=== PATIENT | male | born 1960 | race Caucasian/White ===

== ENCOUNTER 2018-01-29 02:26 | Outpatient (CLI) | payer BC, SELFPAY ==
[2018-01-29 08:26] LABS: ALT 33 U/L (12-78); AST 25 U/L (15-37); Albumin 4.1 g/dL (3.4-5.0); Alkaline Phosphatase 54 U/L (46-116); Anion Gap 9.4 mmol/L (3-11); BUN 26 mg/dL (7-18); Bilirubin, Total 0.3 mg/dL (0.2-1.0); CO2 28.6 mmol/L (21.0-32.0); CREATININE 1.02 mg/dL (0.70-1.30); Calcium 8.8 mg/dL (8.5-10.1); Chloride 105 mmol/L (98-107); Cholesterol 255 mg/dL (50-200); Glucose 122 mg/dL (70-100); HDL Cholesterol 46 mg/dL (40-60); LDL CHOLESTEROL 159 mg/dL (<100); Potassium 4.5 mmol/L (3.5-5.1); Sodium 143 mmol/L (136-145); Total Protein 6.8 g/dL (6.4-8.2); Triglyceride 223 mg/dL (30-150)
[2018-01-29 08:34] LABS: TSH (W/Ref FT4) 2.13 uIU/mL (0.358-3.74)
== END 2018-01-29 02:46 ==
PROVIDERS: PCP Family Medicine; Visit Provider Family Medicine
DX: I10 Essential (primary) hypertension (principal)
CPT/HCPCS: 36415; 80053; 80061; 83721; 84443

== ENCOUNTER 2018-07-23 02:04 | Outpatient (CLI) | payer BC, SELFPAY ==
[2018-07-23 08:10] LABS: Hemoglobin A1C 5.8 % (4.5-6.2)
[2018-07-24 13:24] LABS: Lyme Ab w Rflx to Lyme Confirm Negative
[2018-07-25 19:04] LABS: Anaplasma phagocytophilum Negative (Negative); B. miyamotoi PCR Negative (Negative); Babesia divergens/MO-1 Negative (Negative); Babesia duncani Negative (Negative); Babesia microti Negative (Negative); Ehrlichia chaffeensis Negative (Negative); Ehrlichia ewingii/canis Negative (Negative); Ehrlichia muris eauclairensis Negative (Negative)
== END 2018-07-23 02:24 ==
PROVIDERS: PCP Family Medicine; Visit Provider Family Medicine
DX: M19.90 Unspecified osteoarthritis, unspecified site (principal); E78.5 Hyperlipidemia, unspecified
CPT/HCPCS: 36415; 83036; 86618; 87798

== ENCOUNTER 2018-08-27 03:04 | Outpatient (CLI) | payer BC, SELFPAY ==
[2018-08-27 08:28] LABS: Calculated LDL 91; Cholesterol 152 mg/dL (50-200); HDL Cholesterol 52 mg/dL (40-60); Triglyceride 46 mg/dL (30-150)
== END 2018-08-27 03:24 ==
PROVIDERS: PCP Family Medicine; Visit Provider Family Medicine
DX: E78.5 Hyperlipidemia, unspecified (principal)
CPT/HCPCS: 36415; 80061; 83721

== ENCOUNTER 2019-08-17 10:36 | Outpatient (CLI) | payer BC, SELFPAY ==
[2019-08-18 16:52] LABS: COVID-19 RT-PCR UVMMC Result Negative (Negative)
== END 2019-08-17 10:56 ==
PROVIDERS: PCP Family Medicine; Visit Provider Nurse Practitioner Adult Health
DX: Z11.59 Encounter for screening for other viral diseases (principal); Z03.818 Encounter for observation for suspected exposure to other biological agents ruled out
CPT/HCPCS: U0003

== ENCOUNTER 2019-09-09 08:23 | Outpatient (CLI) | payer BC, SELFPAY ==
[2019-09-11 10:46] LABS: COVID-19 RT-PCR Result NEGATIVE (Negative)
== END 2019-09-09 08:43 ==
PROVIDERS: PCP Family Medicine; Visit Provider Family Medicine
DX: Z11.59 Encounter for screening for other viral diseases (principal)
CPT/HCPCS: U0003

== ENCOUNTER 2019-09-16 08:41 | Outpatient (CLI) | payer BC, SELFPAY ==
--- NOTE | 2019-09-16 08:15 | DI.RAD_ITS ---
EXAM: XR HIP RT COMPLETE AP PELVIS CLINICAL HISTORY: R hip pain TECHNIQUE: COMPARISON: No exams were available for comparison FINDINGS: Two views were obtained. There is moderate thinning of the cartilaginous joint spaces both hips supe riorly. There are accessory ossicles of the lateral acetabulum bilaterally. Mild subchondral sclero sis acetabula E and femoral heads noted. Moderate marginal osteophyte formation femoral heads and ac etabula noted. IMPRESSION: Moderate to severe DJD both hips.
== END 2019-09-16 09:01 ==
PROVIDERS: PCP Family Medicine; Referring Provider Family Medicine; Visit Provider Physician Assistant
DX: M25.551 Pain in right hip (principal); M16.0 Bilateral primary osteoarthritis of hip
CPT/HCPCS: 73502

== ENCOUNTER 2019-10-21 10:15 | Outpatient (CLI) | payer BC, SELFPAY ==
--- NOTE | 2019-10-21 10:00 | DI.RAD_ITS ---
EXAM: XR PELVIS AP CLINICAL HISTORY: preop planning. TECHNIQUE: 2D digital imaging was performed. COMPARISON: CR XR HIP RT COMPLETE AP PELVIS from 09/16/2019 FINDINGS: There is stable moderate narrowing of the hip joint spaces. Moderate spurring is noted from the femo ral heads and bilateral acetabula. Subchondral cysts are seen. There are ossicles at the bilateral superior acetabula. SI joints pubic symphysis are unremarkable. IMPRESSION: Stable moderate degenerative changes of both hips. DATA REPOSITORY: RADIATION DOSE DELIVERED:
== END 2019-10-21 10:35 ==
PROVIDERS: PCP Family Medicine; Referring Provider Family Medicine; Visit Provider Physician Assistant
DX: M16.0 Bilateral primary osteoarthritis of hip (principal); M76.9 Unspecified enthesopathy, lower limb, excluding foot
CPT/HCPCS: 72170

== ENCOUNTER 2019-10-28 01:46 | Outpatient (CLI) | payer BC, SELFPAY ==
[2019-10-28 10:13] LABS: HCT 42.8 % (40.0-50.0); HGB 14.6 g/dL (13.5-17.5); MCH 30.9 pg (27.0-33.0); MCHC 34.1 % (32.0-36.0); MCV 90.5 fL (80-95); MPV 10.8 fL (8.0-11.0); Platelet Count 227 10^3/uL (130-400); RBC 4.73 10^6/uL (4.36-5.78); RDW 11.4 % (11.8-14.1); WBC 5.76 10^3/uL (4.4-10.8)
[2019-10-28 11:15] LABS: BUN 21 mg/dL (7-18); CREATININE 0.96 mg/dL (0.70-1.30); Calcium 9.4 mg/dL (8.5-10.1); Chloride 104 mmol/L (98-107); Glucose 116 mg/dL (74-106); Potassium 4.3 mmol/L (3.5-5.1); Sodium 141 mmol/L (136-145)
[2019-10-29 18:07] LABS: COVID-19 RT-PCR Result NEGATIVE (Negative)
== END 2019-10-28 02:06 ==
PROVIDERS: PCP Family Medicine; Visit Provider Student in an Organized Health Care Education/Training Program
DX: M16.11 Unilateral primary osteoarthritis, right hip (principal)
CPT/HCPCS: 36415; 80048; 85027; 86850; 86900; 86901; U0003

== ENCOUNTER 2019-11-01 06:04 | Observation (INO) | payer BC, SELFPAY ==
[2019-11-01] VITALS (10 sets, daily range): BP systolic 105–135; BP diastolic 66–102; PULSE 44–53; RESP 12–64; TEMP 35.8–36.6; O2SAT 93–99
[2019-11-01] MEDS: Celecoxib 200 MG CAP 400 MG PO (06:31)
[2019-11-01] MEDS: Acetaminophen 500 MG TAB 1000 MG PO ×2 (06:31→12:21)
[2019-11-01] MEDS: Lactated Ringers 1,000 ML 80 ML IV (06:32)
--- NOTE | 2019-11-01 07:13 | DSE_ITS ---
Date of service: 11/01/19 Time of Service: 14:04 DS: Diagnosis Discharge Diagnosis (1) Primary osteoarthritis of right hip: Status: Chronic Discharge Plan Disposition Patient Disposition: HOME Condition: Good Discharge Details Reason For Visit: R HIP TOTAL Admit Date/Time: 11/01/19 06:04 Admit Provider: Daniel Lay Attending Provider: Daniel Lay [facility] Hospital Course: Patient was admitted to the medical/surgical floor following the procedure. The surgery was tolerated well without any notable medical, surgical, or anesthetic complications. Mobilization began postoperatively. He was voiding spontaneously. Vitals were stable. Physical therapy worked with the patient and was cleared for discharge home. No acute medical issues. Pain was controlled on oral regimen. Home Meds and New Rx's Prescriptions: New aspirin 81 mg tablet,delayed release (DR/EC) 81 mg PO BID Qty: 60 RF: 0 acetaminophen 500 mg tablet 1,000 mg PO Q8H PRN (Reason: pain) Qty: 90 RF: 3 pantoprazole 40 mg tablet,delayed release (DR/EC) 40 mg PO DAILY Qty: 30 RF: 0 docusate sodium [Colace] 100 mg capsule 100 mg PO BID PRNQty: 10 RF: 0 ibuprofen 600 mg tablet 600 mg PO TID PRNQty: 90 RF: 3 oxycodone 5 mg tablet 5 mg PO Q4H Qty: 12 RF: 0 Continued atorvastatin 40 mg tablet 40 mg PO DAILY Qty: 90 RF: 3 lisinopril 40 mg tablet 40 mg PO DAILY Qty: 90 RF: 3 Discontinued tramadol 50 mg tablet 50 mg PO BID PRN (Reason: pain) Qty: 30 RF: 0 prednisone 5 mg tablet 5 mg PO DAILY Qty: 30 RF: 0 acetaminophen [Acetaminophen Extra Strength] 500 MG tablet 1,000 mg PO Q8H PRN PRNQty: 180 RF: 0 ibuprofen 200 mg Tablet 800 mg PO PRN PRNRF: 0 Discharge Instructions Additional Instructions: Dr. Lay's Total Hip Discharge Instructions Activity: The most important activity is to walk. You should try to take short walks a few times a day. You have no restrictions on movement or positioning, but do not try to force what you do. You will find some stiffness and weakness with hip flexion (lifting your knee). Do not try to strengthen this too early, continue to practice walking and stairs and this will come. - Outpatient physical therapy can be helpful to help return you to a normal gait and improve your flexibility and strength. This can start around 2 weeks. For most patients, it?s not necessary. Usually this is determined at the time of discharge or at the first post-operative visit. - You should wear the WOODROW hose on both legs for 2 weeks. You may remove those at night. These prevent blood pooling and swelling. Dressing: Keep the surgical dressing in place for at least one week, although it may stay in place untill follow-up. It may get wet after 3 days but avoid soaking the dressing. If it gets wet, just lightly pat dry. Most people prefer to cover the dressing with some ClingWrap, Saran Wrap, to keep it dry. After the first week it may be removed if desired and then replaced with light gauze and tape or nothing. It is important to always keep some gauze or the dressing between skin folds, especially when you are sitting, so the incision is not folded over on itself at the belly fold. Medications: - You should take Tylenol and an anti-inflammatory Ibuprofen as your primary pain control medications - You have been prescribed a stronger pain medication Oxycodone for breakthrough pain, take as needed as prescribed. - You have also been prescribed a stomach acid reduction agent Pantoprozole to help reduce stomach acid and reflux. - You will be taking Aspirin 81mg twice a day for DVT prevention unless instructed otherwise. - If you have constipation you should take Colace or Miralax (both [id number]). It takes most people 3-4 days to have a bowel movement. Follow-up: 2 weeks. If you have any acute concerns or questions, please do not hesitate to contact the office at [phone]. You may contact Dr. Lay with any questions after hours through the hospital at [phone] or on his cell phone at [phone]. Stand Alone Forms: Nursing Discharge Form Referrals: Daniel Lay MD [ [facility] STAFF PHYSICIAN] - 11/14/19 9:30 am Activity:: Activity as Tolerated Equipment/Supplies:: Walker Diet:: As Tolerated Discharge Orders Discharge Orders: Discharge Order (Routine); Ordered 11/01/19 Ordered By: Daniel Lay DS: Summary Status at Discharge Functional status at discharge: uses cane/walker Overall status at discharge: patient is progressing back to baseline Mental Status: mental status grossly normal Speech and Movement: speech and movement normal Mood: congruent mood Affect: normal affect Exam Psych Mental Status: mental status grossly normal Speech and Movement: speech and movement normal Mood: congruent mood Affect: normal affect DS: Data Vitals/I&O Vitals and I&O: Vital Signs Temperature 36.6 C 11/01/19 06:23 Pulse Rhythm Regular 11/01/19 06:23 Respiratory Rate 64 H 11/01/19 06:23 Blood Pressure 121/78 11/01/19 06:23 Pulse Oximetry 97 11/01/19 06:23 Oxygen Delivery Method Room Air 11/01/19 06:23 Oxygen Flow Rate 0 11/01/19 06:23 Intake & Output 10/31/19 10/31/19 11/01/19 11:59 23:59 11:59 Weight 81.647 kg 82.6 kg [facility] Medical History Chondromalacia, left knee (Acute) Essential hypertension (Acute) Family history of prostate cancer (Acute) Grandfather, likely non-metastatic Hyperlipidemia (Acute) Surgical History Colonoscopy w/ BX (01/05/15) H/O vasectomy (Acute) Repair, Rotator Cuff (02/13/15) 02/06/2015- Dr Lay. debrid rotator cuff, subacromial debrid w/acromioplasty, biceps tenotomy, distal clavicle excision, glenohumeral/labral debridment; Both shoulders Status post tonsillectomy (Acute) Family History Mother , cerebral hemorrhage at age 39. No problems noted. Father No problems noted. 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
--- NOTE | 2019-11-01 07:15 | DI.RAD_ITS ---
EXAM: XR HIP RT IN OR CLINICAL HISTORY: right total hip TECHNIQUE: 2D and realtime digital imaging was performed. CONTRAST MATERIAL: Refer to procedure report. COMPARISON: CR XR PELVIS AP from 10/21/2019 FINDINGS: Fluoroscopy was provided for Dr. Lay during the performance of a right total hip arthroplasty. Please refer to the procedure report for complete details. Fluoro time: 42.1 seconds IMPRESSION: RADIATION DOSE DELIVERED:
[2019-11-01] MEDS: ceFAZolin 2 GM/50 ML BAG IVPB (07:40)
[2019-11-01] MEDS: Bupivacaine 0.25% Pres-Free 30 ML VIAL (08:30)
[2019-11-01] MEDS: Ketorolac 30 MG/ML VIAL (08:31)
[2019-11-01] MEDS: oxyCODONE 5 MG TAB PO ×2 (10:34→14:03)
--- NOTE | 2019-11-01 10:57 | PT.INIE ---
Date of service: 11/01/19 Time of Service: 10:57 PT Notes Visit Reasons: R HIP TOTAL Physical Therapy Inpatient Initial Evaluation Date: 02/10/2020 Referring Doctor: Daniel Lay MD PT Orders: PT CONSULT: Status post Ortho surgery Precautions: Fall. Standard. WBAT on R LE. Patient Profile/Admitting Diagnosis: [id number] male with primary unilateral osteoarthritis of the right hip and is status post right total hip arthroplasty on postoperative day 0. PMHX: Medical History (Updated 10/21/19 @ 10:29 by Madison Askew) Chondromalacia, left knee (Acute) Essential hypertension (Acute) Family history of prostate cancer (Acute) Grandfather, likely non-metastatic Hyperlipidemia (Acute) Surgical History (Updated 10/21/19 @ 10:28 by Madison Askew) Colonoscopy w/ BX (01/05/15) H/O vasectomy (Acute) Repair, Rotator Cuff (02/13/15) 02/06/2015- Dr Lay. debrid rotator cuff, subacromial debrid w/acromioplasty, biceps tenotomy, distal clavicle excision, glenohumeral/labral debridment; Both shoulders Status post tonsillectomy (Acute) Social History/Home Situation: Lives with in a private home with 2 steps to enter without rails. Has another flight of steps with bilateral rails to the second floor of the house where the bedroom is. All aspects of ADLs without the need for assistive ambulatory device nor adaptive equipment. 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 Equipment Owned/DME: Front wheeled walker Subjective: Agreeable to PT consult. Reported mild lightheadedness upon sitting at edge of bed and with ambulation activity. Denies headache, chest pain, and shortness of breath throughout. Looks forward to going home today. Objective: General Observation: Mepilex Ag over surgical incision. Bilateral TEDS on. IV access in the left UE. Mental Status: Alert and oriented x4 Pain: 2/10 in the right hip ROM: Right Upper Extremity: Shoulder Flexion WFL. Shoulder abduction WFL. Elbow flexion WFL. Wrist flexion WFL. Opening and closing of hand WFL. Left Upper Extremity: Shoulder Flexion WFL. Shoulder abduction WFL. Elbow flexion WFL. Wrist flexion WFL. Opening and closing of hand WFL. Right Lower Extremity: Hip flexion WFL. Hip abduction WFL. Knee flexion WFL. Ankle dorsiflexion WFL. Ankle plantarflexion WFL. Left Lower Extremity: Hip flexion WFL. Hip abduction WFL. Knee flexion WFL. Ankle dorsiflexion WFL. Ankle plantarflexion WFL. Strength: Right Upper Extremity: Shoulder flexors 5/5. Shoulder abductors 5/5. Elbow flexors 5/5. Elbow extensors 5/5. 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 Left Upper Extremity: Shoulder flexors 5/5. Shoulder abductors 5/5. Elbow flexors 5/5. Elbow extensors 5/5. 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 Right Lower Extremity: Hip flexors 4/5. Hip abductors 4/5. Knee flexors 4/5. Knee extensors 4/5. Ankle dorsiflexors 5/5. Ankle plantarflexors 5/5. Left Lower Extremity:Hip flexors 5/5. Hip abductors 5/5. Knee flexors 5/5. Knee extensors 5/5. Ankle dorsiflexors 5/5. Ankle plantarflexors 5/5. Sensation: Intact as to pain and pressure on bilateral lower extremities. Reports tingling sensation on the dorsum aspect of his toes and some numbness in his chris-area. Bed Mobility/Transfers: Supine to sit supervision Sit to supine supervision Sit to stand standby assist Stand to sit standby assist Bed to chair standby assist Chair to bed Gait: Tolerated level surface ambulation of 200 feet using front wheeled walker with WBAT on the right LE requiring standby assist with step through gait pattern with report of some mild pulling sensation in the right hip that subsided towards the end of the activity. Reports 2/10 pain in the right hip with activity. Balance: Static Sitting: Normal Dynamic Sitting: Normal Static Standing: Fair Dynamic Standing: Fair Special Tests: Mobility Limitations Standardized Measure [facility] AM-PAC 6 clicks Basic Mobility Inpatient Short Form: Raw Score: 23 CMS Score: 11% deficit Informed Consent/Education: Patient instructed in purpose of PT consult and plan of care. Assessment: Olaf demonstrates functional mobility decline requiring the use of a front wheeled walker for all mobility ADL performance, and as of gait, generalized weakness, difficulty with ambulation resulting from postoperative status. [id number] male with primary unilateral osteoarthritis of the right hip and is status post right total hip arthroplasty on postoperative day 0. Patient presents with clinical signs and symptoms consistent with current/admitting diagnoses that have resulted to mobility limitations, gait instability, generalized weakness, and impairment of motor control as demonstrated by the following impairment level findings: 1. Decreased strength to right hip major muscle groups 2. Impaired sitting/standing balance 3. Impaired activity tolerance Impairments are contributing to the following functional limitations: 1. Inability to safely ambulate without assistive device and physical assistance 2. Increase completion time for mobility ADL performance 3. Increased fall risk 4. Inability to negotiate steps alone safely Patient is assessed as a 73072 moderate complexity based on the following: History: 59 [id number] with impairment level findings, functional limitations, and past medical history as indicated above Examination: Demonstrable impairment in strength, balance, and mobility level with underlying impairments and functional limitations as documented above Presentation:Evolving Decision Makin moderate complexity Goals: Goals X 1 more treatment session 1. Supine-Sit independent 2. Sit-Supine independent 3. Sit-Stand independent 4. Stand-Sit independent 5. Bed-Chair independent 6. Chair-Bed independent 7. Supervision gait on level surface with use of least restrictive device for at least 300 feet without report of pain nor dyspnea 8. Supervision stair negotiation while holding onto bilateral rails for at least 10 steps without report of pain nor dyspnea 9. Independent with home exercise program 10. Good static and dynamic standing balance/tolerance Plan of Care/Treatment Plan: N/A. PT consult and 1 treatment session only. DISCHARGE RECOMMENDATIONS: Outpatient PT services to facilitate return to premorbid independent level and to vocational activities. TREATMENT CODE/TIME: 06408 x 30 minutes, 27402 x 13 minutes beginning at 10:57 AM Thank you for the opportunity to participate in the care of this patient. Brandy Lovelace PT, DPT, CLT [facility] [place], [place]
[2019-11-01] MEDS: ceFAZolin 1 GM/50 ML BAG IVPB (11:41)
--- NOTE | 2019-11-01 13:37 | PTTR_ITS ---
Date of service: 11/01/19 Time of Service: 13:37 PT Notes Visit Reasons: R HIP TOTAL Inpatient Physical Therapy Treatment Note [facility] Date: 11/01/19 PRECAUTIONS: Fall, WBAT R SUBJECTIVE: Olaf is eager to participate in PT, as he would like to be discharged home this afternoon. OBJECTIVE: PAIN: Patient reports a stinging, pulling pain at his incision site, nursing al erted. BED MOBILITY/TRANSFERS Sit-stand: I Stand-sit: I Bed-chair: S Chair?bed: S GAIT Assistive Device: FWW Weight bearing: WBAT R Assist: S Distance: 260' Deviation: Step through gait pattern utilized Gait training performed with SPC. Patient educated on appropriate gait pattern and safe use of SPC. THEREX: Patient completed a lower extremity strengthening and stabilization program, in a long sitting position, as per flow sheet. Ice pack to R hip prior to PT session, as well as after PT session. STAIRS: Up/down 4?6 and 6?4 using B rails and a step over pattern with supervision ASSESSMENT: Patient tolerated session with complaint of a pulling/stinging pain at the incision site. He demonstrates independence with sit<>stand transfers at this time. PLAN: As per primary PT TREATMENT CODE/TIME: 25 minutes; 89080, [id number]
--- NOTE | 2019-11-01 14:05 | CHAPLAIN ---
Les said he had his hip surgery this morning, and has already been up walking around. He is in touch with family by phone and expects to be going home soon.
--- NOTE | 2019-11-01 14:19 | W.PM.OP ---
Date of service: 11/01/19 Time of Service: 09:32 Operative Note Operative Note DATE OF PROCEDURE: 11/01/19 PRE-OP DIAGNOSIS: Right Hip Osteoarthritis POST-OP DIAGNOSIS: same PROCEDURE: Right Anterior Total Hip Arthroplasty SURGEON: Daniel Lay LASER SPECIALIST: Loretta Rehman ANESTHESIA: spinal ESTIMATED BLOOD LOSS: 200 PATHOLOGY: none sent TOURNIQUET TIME: 0 COMPLICATIONS: None Patient was transported to: PACU Patient's condition: stable Implants: 1. Depuy Mumford Acetabular Component, 54mm 2. Depuy Acetabular Liner, [id number] 3. Depuy Corail High Offset Femoral Stem, Size 12 4. Depuy Altrx Ceramic Femoral Head, Size 36+1.5mm Indications: I have seen Olaf in clinic for symptoms of hip arthritis, confirmed with radiographic findings. He has exhausted nonoperative methods and was having significant limitations in daily function and desired better function and less pain. I discussed the technical details of a hip replacement. I explained the risks of the procedure to include, but not limited to, bleeding, infection, pain, stiffness, fracture, damage to nerves and vessels, damage to muscles and tendons, loosening, instability, leg length inequality, need for repeat procedure, blood clot and cardiopulmonary demise. Despite these risks, Olaf elected to proceed. Findings: There was significant signs of arthritis throughout the hip. Procedure Description: Olaf was greeted in the preoperative holding area where the correct side was identified and marked. The consent was reviewed with the patient and signed. The history and physical was updated. All questions were answered. He was taken back to the operating room. A spinal anesthestic was then administered. The patient was placed into the supine position on the operating room table. The patient was then positioned onto the ARCH table. Both feet were wrapped with Webrill cotton wrap along with Coban. The feet were placed in specialized boots for the ARCH table, well seated within the boot and secured. SCDs were applied. The patient was then slid down onto a peroneal post and the nonoperative leg was secured in a leg mckoy attached to the table. The operative side was placed into the ARCH table attachment and bed height and positioning was secured. A preoperative AP pelvis was obtained to serve as a reference for determining leg lengths. Prophylactic antibiotics in the form of Cefazolin were administered. 1g of Tranxemic Acid was given intravenously within 30 minutes of incision. The right leg was then prepped with Chloraprep and draped in a standard fashion. A second prep with Chloraprep was performed prior to placement of a shower-curtain type drape with Iodine impregnated skin protection. A timeout to confirm correct identity, side and site, procedure, allergies, anesthesia, and medical concerns was performed. An obliquely oriented incision was made starting lateral to the ASIS and running distal over the Tensor Fascia Kristina (TFL) muscle belly toward the fibular head, approximately 10cm. The skin and soft tissue was dissected sharply, through Braeden?s fascia, and to the fascia of the TFL. With the fascia and superior border of the IT band identified, the fascia was incised with a new knife just above any perforators from the IT band. The TFL muscle belly was bluntly dissected away from the fascia and moved laterally. The fat between TFL and rectus was identified to ensure the dissection was not within the TFL. Blunt dissection created space between abductors and the capsule and retractor was placed over the lateral femoral neck. The fibers of the rectus femoris tendon were identified and these were freed from the anterior capsule. A second cobra retractor was placed around the medial femoral neck. The TFL was further retracted laterally to show the deep fascia. Careful dissection through this layer identified three main crossing vessels of the lateral femoral circumflex. These were cauterized in multiple locations and then cut without any noticeable bleeding. The TFL was further released bluntly from the deep fascia to expose anterior hip capsule and fat The Tk orthopaedic retractor was then placed beneath the TFL and against sartorius and medial soft tissues to protect and retract the soft tissues. A T-capsulotomy was then performed starting at the superior lateral acetabulum and moving distally to the intertrochanteric ridge. These capsular flaps were tagged with a No. 1 Ethibond and elevated from within. The capsular flaps were released to the shoulder of the lateral neck and to the lesser trochanter to give excellent visualization of the proximal femur. A neck osteotomy was performed using an oscillating saw based on preoperative templates. This cut started in the shoulder and of the lateral neck and exited medially. The saw was at all times directed medially to avoid injury to the greater trochanter. 6cm of traction was applied to the leg and the osteotomy opened. The femoral head was removed with a corkscrew, making sure to protect the TFL on its exit. This was measured on the back table to determing the starting reamer size. Portions of the rectus obscuring visualization were minimally elevated off the superior acetabulum. An anterior retractor was placed over the anterior wall between capsule and labrum and attached to the Gripper retraction system. A posterior retractor was placed similarly. This provided excellent visualization. The contents of the cotyloid fossa were removed with electrocautery and the labrum was removed with a knife. There was significant chondromalacia of the superior acetabulum. Acetabular reaming began with a 50mm reamer. This first reaming was directed anterior to posterior and medial to get down to the true floor. This was inspected and reamed until the true floor was reached. The anterior retractor was then released and entry and exit was provided by traction on the capsular flaps. I then reamed sequentially up to a 54mm reamer where good fit was obtained. The larger reamers were oriented based on anatomical reference of the anterior and lateral long to ensure proper abduction and anteversion. Positioning and size was confirmed with the fluoroscopy. A 54mm Depuy Mumford acetabular component was selected. The acetabulum was reamed around the periphery with the selected acetabular size to prevent a rim fit. The deep tissues were irrigated. The acetabular component was then impacted in a position of about 40-45 degrees of abduction and 15-20 degrees of anteversion, using the patient?s anatomy as the ultimate landmark. Fluoroscopy was used to confirm this. There was excellent experimental mechanic spacecraft of the acetabular component and the inserting handle was removed. A primary acetabular screw was placed into the ilium by drilling through one of the holes in the acetabular component. This was measured and an approrpriately sized screw was placed with excellent purchase. It was checked not to be proud. The acetabular liner, Depuy [id number] polyethylene liner, was inserted and lined up with the tines of the acetabular component. There was no soft tissue interposition. The liner was then impacted into position and confirmed to be well-seated. A portion of the chris-articular cocktail was then injected around the acetabulum into the capsule and periosteum. This cocktail consisted of 50cc of 0.25% Bupivicaine and 20cc of Exparel, expanded to a total of 120cc. Traction was released from the femur. The leg was rotated to 120 degrees. Any remaining medial capsule was released until the lesser trochanter was easily palpable. A Allen retractor was placed medially. The lateral capsule was further released into the shoulder to allow access to the greater trochanter. A Allen retractor was placed over the greater trochanter which allowed the trochanter to flip in front of the capsule for excellent exposure. The leg was brought down into maximal extension and 20 degrees of adduction while ensuring there was no impingement on the acetabulum. Any remnant capsule within the trochanter was released. Piriformis and obturator externis were identified and protected. There was excellent access to the proximal femur. The lateral neck remnant was removed with a rongeur. A blunt canal probe was used to identify the canal and trajectory for later broaching. A box osteotome initiated the broach course. A small curved rasp and a curved curette were used to work laterally. Broaching then began with a size 8 Corail broach. This was inserted manually around the trochanter and into the canal before mallet blows. The broach was seated to a few millimeters below the cut level based on the neck cut and the preoperative template. Sequential broaching was continued with the [employer] pneumatic broaching device until a tight fit was obtained with good rotational control of the femur. A trial high offset neck was inserted along with a +1.5 trial head. The leg was brought out of extension and adduction and then reduced with traction and internal rotation. The leg was stable anteriorly in a position of 30 degrees of extension and 90 degrees of external rotation. Fluoroscopy was used to ensure there was no fracture and the stem was seated well. Leg lengths were checked with an AP pelvis and pelvic reference points. [email or web address] navigation system was used to confirm appropriate positioning and leg length and offset. Once content with the desired offset and leg lengths, the leg was brought back into extension, external rotation and adduction. The periosteum and surrounding tissue was injected with remaining portion of the chris-articular cocktail. The proximal femur was irrigated as well as the deep tissues. The Depuy Corail high offset stem, size 12, was then manually inserted into the proximal femur making sure to control rotation. It was then malleted into position with light blows, giving breaks to allow bone expansion and decrease risk of fracture. The selected Depuy Altrx Ceramic Head, size 36+1.5mm, was then placed onto the clean and dry trunnion and secured with impaction onto the tapered fit. The leg was brought back out of extension and adduction and reduced with traction and internal rotation. Stability was confirmed with no shuck at 90 degrees of external rotation and 30 degrees of extension. No impingement through range of motion arc. Final x-ray images were obtained with fluoroscopy to confirm adequate positioning and no intraoperative fracture. The deep tissues were thoroughly irrigated with Irrisept chlorhexadine solution. The second dose of TXA 1g was administered intravenously.The capsule was then reapproximated with the previously placed Ethibond sutures. The TFL fascia was finally closed with a No. 2 Stratafix, barbed suture. Deep tissues were then reapproximated with 0 Vicryl and a running 2-0 Vicryl. The skin was closed with a running 4-0 Monocryl in a subcuticular fashion. This was reinforced with skin glue. A Mepilex silver dressing was applied. At the end of the case, all counts were correct. Rico was transferred to the hospital bed without difficulty and suffering no apparent complication. Rico has a good prognosis. Physical therapy will start today and without restrictions, weight-bearing as tolerated. Aspirin 81mg BID will be used for DVT prophylaxis.
--- NOTE | 2019-11-03 08:16 | PT.INDS ---
Date of service: 11/03/19 PT Notes Visit Reasons: R HIP TOTAL Physical Therapy Inpatient Initial Evaluation Date: 11/03/2019 Dates of Service: 11/01/2019 only Referring Doctor: Daniel Lay MD PT Orders: PT CONSULT: Status post Ortho surgery Precautions: Fall. Standard. WBAT on R LE. Patient Profile/Admitting Diagnosis: Lrri-[id number] male with primary unilateral osteoarthritis of the right hip and is status post right total hip arthroplasty on postoperative day 0 on day of discharge. PMHX: Medical History (Updated 10/21/19 @ 10:29 by Madison Askew) Chondromalacia, left knee (Acute) Essential hypertension (Acute) Family history of prostate cancer (Acute) Grandfather, likely non-metastatic Hyperlipidemia (Acute) Surgical History (Updated 10/21/19 @ 10:28 by Madison Askew) Colonoscopy w/ BX (01/05/15) H/O vasectomy (Acute) Repair, Rotator Cuff (02/13/15) 02/06/2015- Dr Lay. debrid rotator cuff, subacromial debrid w/acromioplasty, biceps tenotomy, distal clavicle excision, glenohumeral/labral debridment; Both shoulders Status post tonsillectomy (Acute) Social History/Home Situation: Lives with in a private home with 2 steps to enter without rails. Has another flight of steps with bilateral rails to the second floor of the house where the bedroom is. All aspects of ADLs without the need for assistive ambulatory device nor adaptive equipment. 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 Equipment Owned/DME: Front wheeled walker Subjective: NT Objective: General Observation: NT Mental Status: NT Pain: NT ROM: Right Upper Extremity: Shoulder Flexion WFL. Shoulder abduction WFL. Elbow flexion WFL. Wrist flexion WFL. Opening and closing of hand WFL. Left Upper Extremity: Shoulder Flexion WFL. Shoulder abduction WFL. Elbow flexion WFL. Wrist flexion WFL. Opening and closing of hand WFL. Right Lower Extremity: Hip flexion WFL. Hip abduction WFL. Knee flexion WFL. Ankle dorsiflexion WFL. Ankle plantarflexion WFL. Left Lower Extremity: Hip flexion WFL. Hip abduction WFL. Knee flexion WFL. Ankle dorsiflexion WFL. Ankle plantarflexion WFL. Strength: Right Upper Extremity: Shoulder flexors 5/5. Shoulder abductors 5/5. Elbow flexors 5/5. Elbow extensors 5/5. Division Supervisor strong. Left Upper Extremity: Shoulder flexors 5/5. Shoulder abductors 5/5. Elbow flexors 5/5. Elbow extensors 5/5. Division Supervisor strong. Right Lower Extremity: Hip flexors 4/5. Hip abductors 4/5. Knee flexors 4/5. Knee extensors 4/5. Ankle dorsiflexors 5/5. Ankle plantarflexors 5/5. Left Lower Extremity:Hip flexors 5/5. Hip abductors 5/5. Knee flexors 5/5. Knee extensors 5/5. Ankle dorsiflexors 5/5. Ankle plantarflexors 5/5. Sensation: Intact as to pain and pressure on bilateral lower extremities. Reports tingling sensation on the dorsum aspect of his toes and some numbness in his chris-area. Bed Mobility/Transfers: Supine to sit independent Sit to supine independent Sit to stand independent Stand to sit independent Bed to chair supervision Gait: Tolerated level surface ambulation of 260 feet using front wheeled walker with WBAT on the right LE requiring supervision with step through gait pattern. Up and down six 4-inch steps and four 6-inch steps while holding onto B rails with step-over patern requiring supervision assist. Balance: Static Sitting: Normal Dynamic Sitting: Normal Static Standing: Fair Dynamic Standing: Fair Assessment: Olaf demonstrates functional mobility decline requiring the use of a front wheeled walker for all mobility ADL performance, and as of gait, generalized weakness, difficulty with ambulation resulting from postoperative status. [id number] male with primary unilateral osteoarthritis of the right hip and is status post right total hip arthroplasty on postoperative day 0. he plans on going home today after one more session of physical therapy to cover stair negotiation and do HEP education. Goals: Goals X 1 more treatment session 1. Supine-Sit independent MET 2. Sit-Supine independent MET 3. Sit-Stand independent MET 4. Stand-Sit independent MET 5. Bed-Chair independent NOT MET 6. Chair-Bed independent NOT MET 7. Supervision gait on level surface with use of least restrictive device for at least 300 feet without report of pain nor dyspnea MET 8. Supervision stair negotiation while holding onto bilateral rails for at least 10 steps without report of pain nor dyspnea MET 9. Independent with home exercise program MET 10. Good static and dynamic standing balance/tolerance NOT MET Plan of Care/Treatment Plan: N/A. PT consult and 1 treatment session only. DISCHARGE RECOMMENDATIONS: Outpatient PT services to facilitate return to premorbid independent level and to vocational activities. TREATMENT CODE/TIME: 95743 x 30 minutes, 04513 x 13 minutes beginning at 10:57 AM Thank you for the opportunity to participate in the care of this patient. Brandy Lovelace PT, DPT, CLT [facility] [place], [place]
== END 2019-11-01 15:16 | disposition home or self-care (01) ==
LOC: PDS 09:51 → MS 09:52
PROVIDERS: Admitting Provider Student in an Organized Health Care Education/Training Program; PCP Family Medicine; Visit Provider Student in an Organized Health Care Education/Training Program
PROC: 0SR904A Replacement of Right Hip Joint with Ceramic on Polyethylene Synthetic Substitute, Uncemented, Open Approach (ICD-10-PCS; CPT 27130; principal; 2019-11-01 07:30)
DX: M16.11 Unilateral primary osteoarthritis, right hip (principal); M25.551 Pain in right hip; Z96.641 Presence of right artificial hip joint; I10 Essential (primary) hypertension
CPT/HCPCS: 27130; 20985; C1776; 97110; 97162; 97530; NC; 73501; G0378; J0690; J1100; J1885

== ENCOUNTER 2019-11-17 14:10 | Outpatient (CLI) | payer BC, SELFPAY ==
--- NOTE | 2019-11-17 13:00 | DI.RAD_ITS ---
EXAM: XR HIP RT COMPLETE AP PELVIS CLINICAL HISTORY: 1ST POST OP TECHNIQUE: COMPARISON: CR XR PELVIS AP from 10/21/2019 FINDINGS: Two views were obtained. There is a total hip joint replacement in position on the right. The compo nents appear well seated. There is mild narrowing of the cartilaginous joint space of the left hip. Prominent marginal osteoph ytes of the acetabulum are noted laterally on the left with probable accessory ossicle at this site a s well. Mild marginal osteophytes of the left femoral head also noted. IMPRESSION: RADIATION DOSE DELIVERED: Total DLP
== END 2019-11-17 14:30 ==
PROVIDERS: PCP Family Medicine; Referring Provider Family Medicine; Visit Provider Student in an Organized Health Care Education/Training Program
DX: Z96.641 Presence of right artificial hip joint (principal)
CPT/HCPCS: 73502

== ENCOUNTER 2020-03-30 08:30 | Outpatient (CLI) | payer BC, SELFPAY ==
--- NOTE | 2020-03-30 08:15 | DI.RAD_ITS ---
EXAM: XR HAND LT COMPLETE CLINICAL HISTORY: left thumb pain. TECHNIQUE: 2D digital imaging was performed. COMPARISON: No exams were available for comparison FINDINGS: There are marked degenerative changes seen at the 1st CMC joint with joint space narrowing subchondra l sclerosis and marginal osteophytes. More mild degenerative changes are seen at the interphalangeal joints of the hand. The bones are intact and normally mineralized. No acute fracture or dislocatio n. The soft tissues are unremarkable. IMPRESSION: Marked osteoarthritis at the 1st CMC joint. DATA REPOSITORY: RADIATION DOSE DELIVERED:
--- NOTE | 2020-03-30 08:15 | DI.RAD_ITS ---
EXAM: XR HAND RT COMPLETE CLINICAL HISTORY: right thumb pain. TECHNIQUE: 2D digital imaging was performed. COMPARISON: No exams were available for comparison FINDINGS: There are degenerative changes in the right hand. Marked degenerative changes are seen at the 1st CM C joint with joint space narrowing and marginal osteophytes. More mild disease is seen at the interp halangeal joints of the hand. The bones are intact and normally mineralized. The soft tissues are u nremarkable. IMPRESSION: Marked osteoarthritis of the 1st CMC joint. DATA REPOSITORY: RADIATION DOSE DELIVERED:
== END 2020-03-30 08:50 ==
PROVIDERS: PCP Family Medicine; Referring Provider Family Medicine; Visit Provider Physician Assistant
DX: M18.11 Unilateral primary osteoarthritis of first carpometacarpal joint, right hand (principal); M18.12 Unilateral primary osteoarthritis of first carpometacarpal joint, left hand
CPT/HCPCS: 73130

== ENCOUNTER 2020-12-07 09:37 | Outpatient (CLI) | payer BC, SELFPAY ==
--- NOTE | 2020-12-07 08:30 | DI.RAD_ITS ---
Exam(s) XR HIP RT AP LAT ONLY EXAM: XR HIP RT AP LAT ONLY CLINICAL HISTORY: right FRANK TECHNIQUE: COMPARISON: CR XR HIP RT COMPLETE AP PELVIS from 11/17/2019 FINDINGS: Three views were obtained. There is a total hip joint replacement in position. The components appea r well seated. No other significant bony abnormality seen. IMPRESSION: RADIATION DOSE DELIVERED: Total DLP
== END 2020-12-07 09:38 | disposition home or self-care (01) ==
LOC: DIORS 09:37
PROVIDERS: PCP Family Medicine; Referring Provider Family Medicine; Visit Provider Physician Assistant
DX: Z96.641 Presence of right artificial hip joint (principal); Z98.890 Other specified postprocedural states
CPT/HCPCS: 73502

== ENCOUNTER 2021-02-20 02:35 | Outpatient (CLI) | payer BC, SELFPAY ==
[2021-02-20 13:30] LABS: Anion Gap 6.7 mmol/L (3-11); BUN 23 mg/dL (7-18); CO2 30.3 mmol/L (21.0-32.0); CREATININE 1.1 mg/dL (0.70-1.30); Calcium 9.4 mg/dL (8.5-10.1); Chloride 104 mmol/L (98-107); Glucose 92 mg/dL (74-106); Sodium 141 mmol/L (136-145)
[2021-02-20 23:17] LABS: PSA, Screening 2.3 ng/mL (0.0-4.5)
== END 2021-02-20 02:36 | disposition home or self-care (01) ==
LOC: LBO 02:36
PROVIDERS: PCP Family Medicine; Visit Provider Family Medicine
DX: I10 Essential (primary) hypertension (principal); Z12.5 Encounter for screening for malignant neoplasm of prostate
CPT/HCPCS: 36415; 80048; 84153

== ENCOUNTER 2021-12-20 08:31 | Outpatient (CLI) | payer BC, SELFPAY ==
--- NOTE | 2021-12-20 08:11 | DI.RAD_ITS ---
Exam(s) XR HIP PELVIS ADULT BL EXAM: XR HIP PELVIS ADULT BL CLINICAL HISTORY: s/p right FRANK, bilateral hip pain TECHNIQUE: COMPARISON: CR XR HIP RT AP LAT ONLY from 12/07/2020 FINDINGS: Three views were obtained. There is total hip joint replacement in position on the right. The components appear well seated. On the left, there is mild to moderate narrowing of the cartilaginous joint space of the hip superior ly. There is subchondral sclerosis and prominent marginal osteophytes of the acetabulum. Mild femor al head marginal osteophytes also noted. IMPRESSION: Moderate DJD left hip. Right hip THR in position. RADIATION DOSE DELIVERED: Total DLP
== END 2021-12-20 08:32 | disposition home or self-care (01) ==
LOC: DIORS 08:32
PROVIDERS: PCP Family Medicine; Referring Provider Family Medicine; Visit Provider Physician Assistant
DX: M25.551 Pain in right hip (principal); M25.552 Pain in left hip; Z96.641 Presence of right artificial hip joint; M16.12 Unilateral primary osteoarthritis, left hip
CPT/HCPCS: 73521

== ENCOUNTER 2022-02-20 03:50 | Outpatient (CLI) | payer BC, SELFPAY ==
[2022-02-20 12:52] LABS: HCT 43.1 % (40.0-50.0); HGB 14.2 g/dL (13.5-17.5); MCHC 32.9 % (32.0-36.0); MCV 94 fL (80-95); MPV 10.1 fL (8.0-11.0); Platelet Count 232 10^3/uL (130-400); RBC 4.58 10^6/uL (4.36-5.78); RDW 11.7 % (11.8-14.1); RDW-SD 39.8 fL; WBC 7.17 10^3/uL (4.4-10.8)
[2022-02-20 13:18] LABS: Anion Gap 8.5 mmol/L (3-11); BUN 26 mg/dL (7-18); CO2 27.5 mmol/L (21.0-32.0); CREATININE 1.1 mg/dL (0.70-1.30); Calcium 9.2 mg/dL (8.5-10.1); Chloride 105 mmol/L (98-107); Estimated GFR 75.43 (mL/min/1.73m2); Glucose 85 mg/dL (74-106); Potassium 3.8 mmol/L (3.5-5.1); Sodium 141 mmol/L (136-145)
[2022-02-24 09:21] LABS: PSA, Screening 1.8 ng/mL (<=4.5)
== END 2022-02-20 03:51 | disposition home or self-care (01) ==
LOC: LBO 03:50
PROVIDERS: PCP Family Medicine; Visit Provider Student in an Organized Health Care Education/Training Program
DX: M25.552 Pain in left hip (principal); M16.12 Unilateral primary osteoarthritis, left hip; Z12.5 Encounter for screening for malignant neoplasm of prostate; Z80.42 Family history of malignant neoplasm of prostate; Z01.818 Encounter for other preprocedural examination; Z01.812 Encounter for preprocedural laboratory examination
CPT/HCPCS: 36415; 80048; 84153; 85027

== ENCOUNTER → 2022-02-24 02:57 | Outpatient (CLI) | payer BC, SELFPAY ==
--- NOTE | 2022-02-24 07:15 | DI.US_ITS ---
APPROVED REPORT EXAM: Comprehensive 2D, Doppler, and color-flow Echocardiogram Patient Location: Out-Patient [facility] Installer: Vanessa Sotelo RDCS (AE) Indications: Mitral regurgitation, Pre op Other Information Study Quality: Good Conclusion Normal left ventricular wall thickness and chamber size. Estimated ejection fraction is 68%. Wall m otion is normal Normal right ventricular size and systolic function Both atria are normal in size There is no structural or hemodynamically significant valvular disease Wall motion Left Ventricle The left ventricle is normal size. The left ventricular systolic function is normal. The left ventric ular ejection fraction is within the normal range. There is normal left ventricular wall thickness. T here is normal LV segmental wall motion. There is no ventricular septal defect visualized. LVEF is 68 %. Right Ventricle The right ventricle is normal size. The right ventricular systolic function is normal. The RVSP is 19 .1mmHg. Atria The left atrium size is normal. The right atrium size is normal. The interatrial septum is intact wit h no evidence for an atrial septal defect. Aortic Valve The aortic valve is normal in structure. Aortic valve is trileaflet. There is no aortic valvular sten osis. No aortic regurgitation is present. Mitral Valve The mitral valve is normal in structure. No evidence of mitral valve stenosis. Trace mitral regurgita tion. Tricuspid Valve The tricuspid valve is normal in structure. There is no tricuspid valve stenosis. Trace tricuspid reg urgitation. Pulmonic Valve The pulmonary valve is normal in structure. There is no pulmonic valvular stenosis. Trace pulmonic re gurgitation. Great Vessels The aortic root is normal in size. The ascending aorta is normal in size. Aortic arch is normal in ca liber. IVC is normal in size and collapses >50% with inspiration. Pericardium There is no pericardial effusion. 2D Dimensions IVSD d PLAX 0.92 cm M: 0.6-1.2 LV Vol A2C d MOD 104.2 mL LVPW d PLAX 0.96 cm M: 0.6 - 1.2 LV Vol A4C d MOD 99.2 mL LVID d PLAX 4.55 cm M: 4.2 - 5.8 LA vol/ BSA A2C s A-L 29.6 mL/m2 LVDs 2.70 cm M: 2.5 - 4.0 LA vol/ BSA A4C s A-L 19.3 mL/m2 Ao Root d 3.12 cm M: 3.1 - 3.7 LA Vol/ BSA Biplane s A-L 24.1 mL/m2 RA Area A4C 15.27 cm2 LA Area A4C s MOD 14.81 cm2 RA Vol/ BSA A4C s A-L 20.0 mL/m2 LA Area A2C s MOD 18.48 cm2 Ao Asc Diam d 3.31 cm M: 2.6 - 3.4 LV EF A4C MOD 68.7 % LV EF Teichholz 70.4 % LV EF A2C MOD 68.0 % LVEF (Panda's) 68.09 % M: 52 - 72 LV EF Biplane MOD 68.1 % LV Volume 77.84 mL M: 62 - 150 SV 69.78 mL LV Volume Index 40.54 mL/m2 M: 34 - 74 SV Index 36.22 mL/m2 LV Vol Biplane MOD 102.5 mL FS 39.70 % M-Mode TAPSE 2.66 cm (M/F) >1.7 LV Diastology MV E' medial 0.109 (>0.07 m/s) E/A Ratio 1.1 LV E/e MED 5.35 (<14) MV E Vmax 0.58 (0.4-1.3 m/s) MV E' lateral 0.147 (>0.1 m/s) MV A Vmax 0.55 (0.4-1.3 m/s) LV E/e LAT 3.95 (<14) MV E/A Ratio 1.03 MV E/E' medial 5.38 MV E/E' lateral 3.98 Aortic Valve LVOT Area 3.05 cm2 AoV Area Vmax 2.79 cm2 LVOT Vmax 1.25 m/s AoV Area/ BSA (Vmax) 1.45 cm2/m2 LVOT Mean Dion. 0.75 m/s JOVANY Mean Dion. 2.52 cm2 LVOT Peak Grad 6.3 mmHg JOAVNY Mean Dion. Index 1.31 cm2/m2 LVOT Mean Grad 2.8 mmHg LVOT VTI 0.237 m LVOT Diam s 1.95 cm AoV Vmax 1.37 m/s Velocity Ratio 0.91 AoV Mean Dion. 0.91 m/s AoV Peak Grad 7.5 mmHg LVOT SV 72.25 mL AoV Mean Grad 3.8 mmHg AoV VTI 0.248 m AoV Area VTI 2.92 cm2 AoV Area/ BSA (VTI) 1.51 cm/m2 Mitral Valve MV DT 311 (160-240 msec) MV PHT 90 msec MV Area PHT 2.44 cm2 Pulmonary Valve PV Vmax 1.06 (0.5-1.5 m/s) RVOT Peak Gr. 1.40 mmHg PV Peak Grad 4.5 mmHg RVOT Mean Gr. 0.65 mmHg PV Mean Grad 2.2 mmHg RVOT VTI 0.126 m PV VTI 0.194 m RVOT Vmax 0.59 m/s Tricuspid Valve TR Peak Grad 16.0 mmHg TR Vmax 2.00 m/s RA Pressure 3.00 mmHg RVSP (TR) 19.1 mmHg
== END ==
PROVIDERS: PCP Family Medicine; Visit Provider Student in an Organized Health Care Education/Training Program
DX: I34.0 Nonrheumatic mitral (valve) insufficiency (principal)
CPT/HCPCS: 93306

== ENCOUNTER 2022-02-25 06:03 | Day surgery (SDC) | payer BC, SELFPAY ==
--- NOTE | 2022-02-21 14:07 | PDOC.ANES ---
Date of service: 02/21/22 Time of Service: 14:07 Anesthesia Note Report Anesthesia Note: Discussion with group related to outdated ECHO. Patient with moderate MR, last ECHO in 2013. National standard is an ECHO within 2 years. Called patient and discussed, notified Dr. Lay. Dr. Lay able to schedule an ECHO for thursday at 1130 barring insurance issues. Patient called back and made aware. Can proceed with elective surgery dependent on ECHO results.
[2022-02-25] VITALS (9 sets, daily range): BP systolic 109–142; BP diastolic 55–91; PULSE 42–74; RESP 12–19; TEMP 36–36.5; O2SAT 96–100; BMI 26.8
[2022-02-25] MEDS: Celecoxib 200 MG CAP 400 MG PO (06:37)
[2022-02-25] MEDS: Acetaminophen 500 MG TAB 1000 MG PO (06:37)
[2022-02-25] MEDS: Lactated Ringers 1,000 ML 80 ML IV (06:55)
--- NOTE | 2022-02-25 07:09 | DI.RAD_ITS ---
Exam(s) XR HIP LT IN OR EXAM: XR HIP LT IN OR CLINICAL HISTORY: total hip TECHNIQUE: 2D and realtime digital imaging was performed. CONTRAST MATERIAL: Refer to procedure report. COMPARISON: CR XR HIP PELVIS ADULT BL from 12/20/2021 FINDINGS: Fluoroscopy was provided for Dr. Lay during the performance of a left total hip arthroplasty. Please refer to the procedure report for complete details. Ka,r=4.42 mGy IMPRESSION: RADIATION DOSE DELIVERED:
--- NOTE | 2022-02-25 07:17 | ANES.PREOP_ITS ---
General Info Date of Service Date Performed: 02/25/22 Height: 5 ft 8 in Weight: 80 kg Body Mass Index (BMI): 26.8 Surgical Procedure: Operation Date: 02/25/22 07:50 Proposed Procedure Side Surgeon p Hip Total Hip Anterior Left Daniel Lay MD Meds Allergies and Home Medications Allergies Allergy/AdvReac Type Severity Reaction Status Date / Time tamsulosin HCl [From Flomax] AdvReac Intermediate headache Verified 02/25/22 06:19 sildenafil citrate AdvReac Mild headache Verified 02/25/22 06:19 [From Viagra] Home Medication Medication Instructions Recorded acetaminophen 500 mg tablet 1,000 mg PO Q8H PRN pain #90 tabs 11/01/19 ibuprofen 600 mg tablet 600 mg PO TID PRN #90 tabs 11/01/19 atorvastatin 40 mg tablet 40 mg PO DAILY #90 tabs 02/22/21 lisinopril 40 mg tablet 40 mg PO DAILY #90 tabs 02/22/21 Current Visit Medications: Current Medications Generic Name Dose Route Start Last Admin Trade Name Freq PRN Reason Stop Dose Admin Acetaminophen 1,000 mg 02/25/22 06:00 02/25/22 06:37 Acetaminophen 500 Mg Tab PO 02/25/22 16:00 1,000 mg PREOP DANIELA Administration Celecoxib 400 mg 02/25/22 06:00 02/25/22 06:37 Celecoxib 200 Mg Cap PO 02/25/22 16:00 400 mg PREOP DANIELA Administration Tranexamic Acid 1,000 mg/ 60 mls @ 360 mls/hr 02/25/22 06:00 Sodium Chloride IV 02/25/22 16:00 PREOP DANIELA Ringer's Solution 1,000 mls @ 80 mls/hr 02/25/22 06:00 02/25/22 06:55 IV 03/26/22 23:59 80 mls/hr INFUSION DANIELA Administration Cefazolin Sodium/Dextrose 2 gm in 50 mls @ 100 mls/hr 02/25/22 06:00 Ancef Duplex IVPB 02/25/22 16:00 PREOP DANIELA IV Miscellaneous Supplies 1 each 02/25/22 06:00 Iv Access IV 03/26/22 23:59 DIRECTED DANIELA Sodium Chloride 0 ml 02/25/22 06:00 Normal Saline Flush 10 Ml Syr IV 03/26/22 23:59 PRN PRN Sodium Chloride 0 ml 02/25/22 06:00 Normal Saline 10 Ml Vial IJ 03/26/22 23:59 DIRECTED PRN Sterile Water 0 ml 02/25/22 06:00 Water,Injection,Sterile 10 Ml Vial IJ 03/26/22 23:59 DIRECTED PRN PFSH Active Problems Active Problems: Problem Status Onset Code Mitral valve regurgitation I34.0 Degenerative joint disease of left hip M16.12 Arthritis of carpometacarpal (CMC) joint of right thumb M18.11 Arthritis of carpometacarpal (CMC) joint of left thumb M18.12 Status post total hip replacement, right 11/01/19 Z96.641 Hyperlipidemia E78.5 Primary osteoarthritis of right hip M16.11 Chondromalacia, left knee M94.262 Essential hypertension I10 Arthritis 12/19/14 M19.90 Urgency of micturition 06/20/16 R39.15 Tendonitis of both rotator cuffs 02/23/15 M75.81, M75.82 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 debrid rotator cuff, subacromial debrid w/acromioplasty, biceps tenotomy, distal clavicle excision, glenohumeral/labral debridment; Both shoulders Status post tonsillectomy Tobacco Smoking/Tobacco Use Status: Never Smokeless tobacco user: chewing tobacco (prn) Alcohol Alcohol Intake: current Alcohol intake frequency: 0-2 drinks per day Alcohol ty pe: beer Substance Use Substance use: Rarely Substance use type: marijuana Details: alcohol: t-2, one drink. Marijuana: t-2, hit from a bowl Vital Signs and Lab Results Vital Signs Most Recent Vital Signs in EMR: Most Recent Vital Signs Temp Pulse Resp BP Pulse Ox 36.4 C L 58 L 16 127/78 97 02/25/22 06:25 02/25/22 06:25 02/25/22 06:25 02/25/22 06:25 02/25/22 06:25 Lab Results Blood Type / Crossmatch: No Data to Display Complete Blood Count: White Blood Count 7.17 10^3/uL (4.4-10.8) 02/20/22 12:47 Red Blood Count 4.58 10^6/uL (4.36-5.78) 02/20/22 12:47 Hemoglobin 14.2 g/dL (13.5-17.5) 02/20/22 12:47 Hematocrit 43.1 % (40.0-50.0) 02/20/22 12:47 Platelet Count 232 10^3/uL (130-400) 02/20/22 12:47 Complete Metabolic Panel: Sodium 141 mmol/L (136-145) 02/20/22 12:47 Potassium 3.8 mmol/L (3.5-5.1) 02/20/22 12:47 Chloride 105 mmol/L (98-107) 02/20/22 12:47 Carbon Dioxide 27.5 mmol/L (21.0-32.0) 02/20/22 12:47 BUN 26 mg/dL (7-18) H 02/20/22 12:47 Creatinine 1.1 mg/dL (0.70-1.30) 02/20/22 12:47 Est GFR (CKD-EPI 2020) 75.43 (mL/min/1.73m2) 02/20/22 12:47 Calcium 9.2 mg/dL (8.5-10.1) 02/20/22 12:47 Glucose 85 mg/dL (74-106) 02/20/22 12:47 Liver Function Panel: No Data to Display Coagulation Panel: No Data to Display Cardiac Panel: No Data to Display Arterial Blood Gas: No Data to Display Venous Blood Gas: No Data to Display Pancreas Panel: No Data to Display Thyroid Panel: No Data to Display Infectious Disease: No Data to Display Blood Cultures: No Data to Display Toxicology Panel: No Data to Display Anesthesia Assessment and Plan Anesthesia History Personal History: No History of Anesthesia Complications Family History: No Family History of Anesthesia Complications Exercise Tolerance Exercise Tolerance: Metabolic Equivalents>4 Pertinent Negatives Pertinent Negatives: No Symptoms of GERD, No Major Cardiovascular Symptoms or Complaints, No Major Pulmonary Symptoms or Complaints and No History of CVA/TIA Cardiac & Pulmonary Exam Cardiac Exam: Normal S1/S2 Heart Sounds Pulmonary Exam: Clear Bilateral Breath Sounds Implantable Cardiac Device Does patient have a Pacemaker or an ICD?: No Airway Exam Known Difficult Airway: No Mallampati Class: 1 Mouth Opening: Normal (> 3cm) Thyromental Distance: Greater than 3 cm Neck Range of Motion: Full ROM Neck Circumference: Normal Teeth Condition: Normal Dentition Airway Comments: #2,3,19,30 ASA Classification ASA Score: ASA 2 Emergency Case?: No NPO Status NPO Status: NPO Clears >2 hours, Solids >8 hours Anesthesia Plan Resuscitation Status: Full Code Anesthesia Technique: Spinal Anesthesia Airway Planned: Natural Airway Monitors Used: Standard Monitors
--- NOTE | 2022-02-25 07:19 | W.PM.DSUDISC ---
Date of service: 02/25/22 Time of Service: 07:20 Discharge Plan Disposition Patient Disposition: HOME Condition: Good Discharge Details Reason For Visit: L THR Attending Provider: Daniel Lay Primary Care Provider: Bebeto Calzada Home Meds and New Rx's Prescriptions: New acetaminophen 500 mg tablet 1,000 mg PO TID Qty: 90 3RF aspirin 81 mg tablet,delayed release (DR/EC) 81 mg PO BID Qty: 60 0RF pantoprazole 40 mg tablet,delayed release (DR/EC) 40 mg PO DAILY Qty: 30 0RF oxycodone 5 mg tablet 5 mg PO Q4H MDD 6 tabs PRN (Reason: pain) Qty: 20 0RF Continued atorvastatin 40 mg tablet 40 mg PO DAILY Qty: 90 3RF lisinopril 40 mg tablet 40 mg PO DAILY Qty: 90 3RF ibuprofen 600 mg tablet 600 mg PO TID PRNQty: 90 3RF Discontinued acetaminophen 500 mg tablet 1,000 mg PO Q8H PRN (Reason: pain) Qty: 90 3RF Discharge Instructions Additional Instructions: Total Hip Discharge Instructions Activity: The most important activity is to walk. You should try to take short walks a few times a day. You have no restrictions on movement or positioning, but do not try to force what you do. You will find some stiffness and weakness with hip flexion (lifting your knee). Do not try to strengthen this too early, continue to practice walking and stairs and this will come. - Outpatient physical therapy can be helpful to help return you to a normal gait and improve your flexibility and strength. This can start around 2 weeks. For some patients, it?s not necessary. Usually this is determined at the time of discharge or at the first post-operative visit. - You should wear the WOODROW hose on both legs for 2 weeks. Dressing: Keep the surgical dressing in place for at least one week. After the first week it may be removed and replace with light gauze and tape or nothing. It may get wet after 3 days but avoid soaking the dressing. If it gets wet, just lightly pat dry. It is important to always keep some gauze between skin folds, especially when you are sitting. Spend some time with the wound exposed when you are lying flat as the incision does wrinkle onto itself. Medications: - You should take Tylenol and continue your anti-inflammatory ibuprofen as your primary pain control medications. - You have been prescribed a stronger pain medication Oxycodone for breakthrough pain, take as needed as prescribed. - You have also been prescribed a stomach acid reduction agent Pantoprozole to help reduce stomach acid and reflux. - You will be taking Aspirin 81mg twice a day for DVT prevention unless instructed otherwise. - If you have constipation you should take Colace or Miralax (both [id number]). It takes most people 3-4 days to have a bowel movement. Follow-up: 2 weeks If you have any acute concerns or questions, please do not hesitate to contact the office at [phone]. You may contact Dr. Lay with any questions after hours through the hospital at [phone] or on his cell phone at [phone]. Referrals: Daniel Lay MD [ [facility] STAFF PHYSICIAN] - Equipment/Supplies: Walker Activity:: Activity as Tolerated Shower/Bathe:: 72 hours and Cover Diet:: As Tolerated DS: Diagnosis Discharge Diagnosis (1) Degenerative joint disease of left hip: Status: Chronic
[2022-02-25] MEDS: ceFAZolin 2 GM/50 ML BAG IVPB (07:32)
--- NOTE | 2022-02-25 09:16 | W.PM.OP ---
Date of service: 02/25/22 Time of Service: 09:15 Operative Note Operative Note DATE OF PROCEDURE: 02/25/22 PRE-OP DIAGNOSIS: Left Hip Osteoarthritis POST-OP DIAGNOSIS: same PROCEDURE: Left Anterior Total Hip Arthroplasty with Intraoperative Navigation SURGEON: Daniel Lay [place] ANESTHESIA TYPE: Spinal Refer to Anesthesia Record ESTIMATED BLOOD LOSS: 200 PATHOLOGY: none sent TOURNIQUET TIME: 0 COMPLICATIONS: None Patient was transported to: PACU Patient's condition: stable Implants: 1. Depuy [place] Acetabular Component, 54mm 2. Depuy Acetabular Liner, [id number] 3. Depuy Corail Standard 125 degree Collared Femoral Stem, Size 13 4. Depuy Altrx Ceramic Femoral Head, Size 36+1.5mm Indications: I have seen Olaf in clinic for symptoms of hip arthritis, confirmed with radiographic findings. He has exhausted nonoperative methods and was having significant limitations in daily function and desired better function and less pain. I discussed the technical details of a hip replacement. I explained the risks of the procedure to include, but not limited to, bleeding, infection, pain, stiffness, fracture, damage to nerves and vessels, damage to muscles and tendons, loosening, instability, leg length inequality, need for repeat procedure, blood clot and cardiopulmonary demise. Despite these risks, Olaf elected to proceed. Findings: There was significant signs of arthritis throughout the hip. Procedure Description: Olaf was greeted in the preoperative holding area where the correct side was identified and marked. The consent was reviewed with the patient and signed. The history and physical was updated. All questions were answered. Olaf was taken back to the operating room. A spinal anesthestic was then administered. The feet were wrapped with cast padding and Coban and then placed into the boot liners and then into the boots. Care was taken to protect the skin and make sure the heels were fully down and the boots were stable. The patient was then positioned onto the HANA table. Both legs were held in a neutral position. SCDs were applied. The patient was then slid down onto a peroneal post. Prophylactic antibiotics in the form of Cefazolin were administered. 1g of Tranxemic Acid was given intravenously within 30 minutes of incision. The left leg was then prepped with Chloraprep and draped in a standard fashion. A second prep with Chloraprep was performed prior to placement of a shower-curtain type drape with Iodine impregnated skin protection. A timeout to confirm correct identity, side and site, procedure, allergies, anesthesia, and medical concerns was performed. An obliquely oriented incision was made starting lateral to the ASIS and running distal over the Tensor Fascia Kristina (TFL) muscle belly toward the fibular head, approximately 10cm. The skin and soft tissue was dissected sharply, through Braeden?s fascia, and to the fascia of the TFL. With the fascia and superior border of the IT band identified, the fascia was incised with a new knife just above any perforators from the IT band. The TFL muscle belly was bluntly dissected away from the fascia and moved laterally. The fat between TFL and rectus was identified to ensure the dissection was not within the TFL. Blunt dissection created space between abductors and the capsule and retractor was placed over the lateral femoral neck. The fibers of the rectus femoris tendon were identified and these were freed from the anterior capsule. A second cobra retractor was placed around the medial femoral neck. The TFL was further retracted laterally to show the deep fascia. Careful dissection through this layer identified three main crossing vessels of the lateral femoral circumflex. These were cauterized in multiple locations and then cut without any noticeable bleeding. The TFL was further released bluntly from the deep fascia to expose anterior hip capsule and fat The Tk orthopaedic retractor was then placed beneath the TFL and against sartorius and medial soft tissues to protect and retract the soft tissues. A T-capsulotomy was then performed starting at the superior lateral acetabulum and moving distally to the intertrochanteric ridge. These capsular flaps were tagged with a No. 1 Ethibond and elevated from within. The capsular flaps were released to the shoulder of the lateral neck and to the lesser trochanter to give excellent visualization of the proximal femur. A neck osteotomy was performed using an oscillating saw based on preoperative templates. This cut started in the shoulder and of the lateral neck and exited medially. The saw was at all times directed medially to avoid injury to the greater trochanter. Gross traction was applied to the leg and the osteotomy opened. The femoral head was removed with a corkscrew, making sure to protect the TFL on its exit. Traction was released after head removal. This was measured on the back table to determine the starting reamer size. Portions of the rectus obscuring visualization were minimally elevated off the superior acetabulum. An anterior retractor was placed over the anterior wall between capsule and labrum and attached to the Gripper retraction system. The femur was rotated to 90 degrees and medial capsule was fully released until the lesser trochanter was palpable and visible; the femur was returned to 30 degrees. A posterior retractor was placed similarly between capsule and labrum. This provided excellent visualization. The contents of the cotyloid fossa were removed with electrocautery and the labrum was removed with a knife. There was a notable floor osteophyte. There was significant chondromalacia of the superior acetabulum. Acetabular reaming began with a 50mm reamer. This first reaming was directed anterior to posterior and medial to get down to the true floor. This was inspected and reamed until the true floor was reached. The anterior retractor was then released and entry and exit was provided by traction on the capsular flaps. I then reamed sequentially up to a 54mm reamer where good fit was obtained. The larger reamers were oriented based on anatomical reference of the anterior and lateral long to ensure proper abduction and anteversion. Positioning and size was confirmed with the fluoroscopy. A 54mm Depuy [place] acetabular component was selected. The acetabulum was reamed around the periphery with the selected acetabular size to prevent a rim fit. The deep tissues were irrigated. The acetabular component was then impacted in a position of about 40-45 degrees of abduction and 15-20 degrees of anteversion, using the patient?s anatomy as the ultimate landmark. Fluoroscopy was used to confirm this. There was excellent pulmonary specialist of the acetabular component and the inserting handle was removed. The acetabular liner, Depuy [id number] polyethylene liner, was inserted and lined up with the tines of the acetabular component. There was no soft tissue interposition. The liner was then impacted into position and confirmed to be well-seated. A portion of the chris-articular cocktail was then injected around the acetabulum into the capsule and periosteum. This cocktail consisted of 123mg of Ropivacaine, 0.25mg of Epinephrine, 0.04mg of Clonidine, and 15mg of Ketorolac, diluted to 50cc. The leg was rotated to 120 degrees. Any remaining medial capsule was released until the lesser trochanter was easily palpable. A retractor was placed medially. The lateral capsule was further released into the shoulder to allow access to the greater trochanter. A Allen retractor was placed over the greater trochanter which allowed the trochanter to flip in front of the capsule for excellent exposure. The leg was brought down into maximal extension and 20 degrees of adduction while ensuring there was no impingement on the acetabulum. Any remnant capsule within the trochanter was released. Piriformis and obturator externis were identified and protected. There was excellent access to the proximal femur. The lateral neck remnant was removed with a rongeur. A blunt canal probe was used to identify the canal and trajectory for later broaching. A box osteotome initiated the broach course. A small curved rasp and a curved curette were used to work laterally. Broaching then began with a size 8 Corail broach. This was inserted manually around the trochanter and into the canal before mallet blows. The broach was seated to a few millimeters below the cut level based on the neck cut and the preoperative template. Sequential broaching was continued with the [employer] pneumatic broaching device until a tight fit was obtained with good rotational control of the femur. A trial standard 125 degree neck was inserted along with a +5 trial head. The leg was brought out of extension and adduction and then reduced with traction and internal rotation. The leg was stable anteriorly in a position of 30 degrees of extension and 90 degrees of external rotation. Fluoroscopy was used to ensure there was no fracture and the stem was seated well. Leg lengths were checked with an AP pelvis and pelvic reference points. Proteopure navigation system was used to confirm appropriate positioning and leg length and offset. This slightly overcorrected offset and leg length. Once content with the desired offset and leg lengths, the leg was brought back into extension, external rotation and adduction. The periosteum and surrounding tissue was injected with remaining portion of the chris-articular cocktail. The proximal femur was irrigated as well as the deep tissues. The Depuy [place] standard 125 degree collared stem, size 13, was then manually inserted into the proximal femur making sure to control rotation. It was then malleted into position with light blows, giving breaks to allow bone expansion and decrease risk of fracture. The fit was very tight and I had to switch to a straight data analytics chief scientist to seat the femoral component all of the way. The selected Depuy Altrx Ceramic Head, size 36+1.5mm, was then placed onto the clean and dry trunnion and secured with impaction onto the tapered fit. The leg was brought back out of extension and adduction and reduced with traction and internal rotation. Stability was confirmed with no shuck at 90 degrees of external rotation and 30 degrees of extension. No impingement through range of motion arc. Final x-ray images were obtained with fluoroscopy to confirm adequate positioning and no intraoperative fracture. The deep tissues were thoroughly irrigated with Surgiphor, betadine solution. This was allowed to sit in the wound for 3 minutes before being thoroughly irrigated out with normal saline. The capsule was then reapproximated with the previously placed Ethibond sutures. The TFL fascia was finally closed with a No. 2 Stratafix, barbed suture. Deep tissues were then reapproximated with 0 Vicryl and a running 2-0 Vicryl. The skin was closed with a running 4-0 Monocryl in a subcuticular fashion. This was reinforced with skin glue. A Mepilex silver dressing was applied. At the end of the case, all counts were correct. Tobyo was transferred to the hospital bed without difficulty and suffering no apparent complication. Rico has a good prognosis. Physical therapy will start today and without restrictions, weight-bearing as tolerated. Aspirin 81mg BID will be used for DVT prophylaxis.
--- NOTE | 2022-02-25 10:14 | W.ANESPOSTOP ---
Postoperative Evaluation Date, Time and Location Date Performed: 02/25/22 Time Performed: 10:14 Patient Location: Day Surgery Unit Vital Signs Most Recent Imported Vital Signs: Most Recent Vital Signs Temp Pulse Resp BP Pulse Ox 36.0 C L 49 L 17 121/91 H 100 02/25/22 10:00 02/25/22 10:00 02/25/22 10:00 02/25/22 10:00 02/25/22 10:00 Pain Score Most Recent Pain Score: Most Recent Pain Score Pain Level 0 02/25/22 10:00 Assessment Mental Status: Awake (Alert & Oriented to Patient Baseline) Airway and Respiratory Function: Patent airway with normal (patient baseline) respiratory exam Cardiovascular Function: Hemodynamically Stable Hydration Status: Adequately Hydrated Nausea & Vomiting: No Nausea or Vomiting Pain: Pt. Denies Any Pain Peripheral Nerve Block: Patient did not receive a nerve block
[2022-02-25] MEDS: oxyCODONE 5 MG TAB PO (11:20)
--- NOTE | 2022-02-25 11:40 | PT.INIE ---
Date of service: 02/25/22 Time of Service: 11:40 PT Notes Visit Reasons: L THR Physical Therapy Day Surgery Initial Evaluation Date: 02/25/2022 Referring Doctor: MASHA Truong PT Orders: PT CONSULT: S/P Ortho Surgery Precautions: WBAT on the L LE with AD. Patient Profile/Admitting Diagnosis: Olaf is a 62-year-old male with primary unilateral osteoarthirtis of the L hip and is S/P L anterior total hip arthroplasty on postoperative day 0. PMHX: Medical History?(Updated 12/20/21 @ 08:38 by Madison Askew) Family history of prostate cancer Grandfather, likely non-metastatic Surgical History? Colonoscopy w/ BX (01/05/15) H/O vasectomy Repair, Rotator Cuff (02/13/15) 02/06/2015- Dr Lay. debrid rotator cuff, subacromial debrid w/acromioplasty, biceps tenotomy, distal clavicle excision, glenohumeral/labral debridment; Both shouldersStatus post tonsillectomy Social History/Home Situation: Lives with in a priavte home with two steps to enter without rails. He has a flight of steps to the bedroom on the second floor, rails on B sides. Equipment Owned/DME: FWW Subjective: Reports numbness in the R foot that slowed down limb advancement on the R to a step to. Pain level stayed at a 5-6/10 in the L hip throughout. Nurse Berrios premedicated patient some 20 minutes ago prior to PT visit. Objective: General Observation: Supine in stretcher. Mepilex Ag over surgical incision. TEDS to B legs. Mental Status: Alert and oriented x 4 Pain: 5-6/10 in the L hip during ambulation ROM: Right Lower Extremity: Hip flexion WFL. Hip abduction WFL. Knee flexion WFL. Ankle dorsiflexion WFL. Ankle plantarflexion WFL. Left Lower Extremity: Hip flexion WFL. Hip abduction WFL. Knee flexion WFL. Ankle dorsiflexion WFL. Ankle plantarflexion WFL. Strength: Right Lower Extremity: Hip flexors 5/5. Hip abductors 5/5. Knee flexors 5/5. Knee extensors 5/5. Ankle dorsiflexors 5/5. Ankle plantarflexors 5/5. Left Lower Extremity:Hip flexors 4/5. Hip abductors 4/5. Knee flexors 5/5. Knee extensors 4/5. Ankle dorsiflexors 5/5. Ankle plantarflexors 5/5. Sensation: Numbness in the R foot otherwise intact in B LE with as to pain and light pressure Bed Mobility/Transfers: Supine to sit stand by assist Sit to stand contact guard assist Stand to sit contcat guard assist Bed to chair contact guard assist Gait: 150 feet using FWW with contact guard assist, step to gait pattern for safety and increased stability. Kandi slowed due to minor incoordination with R limb advancement from being numb. No loss of balance. No path deviation. Stairs: Up and down 20 steps and 4 x 6 inch steps holding onto a single-point cane with 1 hand and the other holding onto a rail with step to gait pattern requiring contact-guard assist. THER EX: Quads sets x 5 Glutes sets x 5 Heels slides x 10 Ankle PF/DF x 10 LAQ x 10 Seated marches x 5 Balance: Static Sitting: Normal Dynamic Sitting: Normal Static Standing: Fair Dynamic Standing: Fair Special Tests: Mobility Limitations Standardized Measure [facility] 6 clicks Basic Mobility Inpatient Short Form: Raw Score: 19 CMS Score: 42% deficit Informed Consent/Education: Patient instructed in purpose of PT consult. Packet containing FRANK exercise protocol has been given to patient. Education and training on initial set of exercises that can be done at home have been completed with patient. Assessment: Patient requires the use of a FWW for all mobility ADL performance to maximize independence and reduce fall risk. Patient presents with clinical signs and symptoms consistent with current/admitting diagnoses that have resulted to mobility limitations, gait instability, generalized weakness, and impairment of motor control as demonstrated by the following impairment level findings: 1. Decreased strength to left hip major muscle groups 2. Impaired standing balance Impairments are contributing to the following functional limitations: 1. Inability to safely ambulate without assistive device 2. Increase completion time for mobility ADL performance 3. Increased fall risk Patient is assessed as a 90986 moderate complexity based on the following: History: 62-year-old male with impairment level findings, functional limitations, and past medical history as indicated above Examination: Demonstrable impairment in strength, balance, and mobility level with underlying impairments and functional limitations as documented above Presentation: Evolving Decision Makin moderate complexity Goals: N/A. PT evaluation and 1-2 treatment sessions only for functional mobility training using recommended AD and for HEP instruction. Plan of Care/Treatment Plan: N/A. PT evaluation and 1-2 treatment session only for functional mobility training using recommended AD and for HEP instruction. DISCHARGE RECOMMENDATIONS: Home when medically cleared by orthopedic surgeon. Patient will benefit from outpatient physical therapy to optimize functional mobility outcomes and facilitate return to community ambulation without an assistive device. TREATMENT CODE/TIME: 31855 x 25 minutes, 99909 x 17 minutes beginning at 11:40 AM. Thank you for the opportunity to participate in the care of this patient. Brandy Lovelace PT, DPT, CLT [facility] [place], [place]
== END 2022-02-25 13:30 | disposition home or self-care (01) ==
PROVIDERS: PCP Family Medicine; Visit Provider Student in an Organized Health Care Education/Training Program
PROC: (CPT 27130; principal; 2022-02-25 07:30)
DX: M16.12 Unilateral primary osteoarthritis, left hip (principal); I10 Essential (primary) hypertension; E78.5 Hyperlipidemia, unspecified
CPT/HCPCS: 27130; 20985; 97162; 97530; 73501; J0690; J1100; J2250; J2370; J2405

== ENCOUNTER 2022-03-10 10:14 | Outpatient (CLI) | payer BC, SELFPAY ==
--- NOTE | 2022-03-10 09:30 | DI.RAD_ITS ---
Exam(s) XR HIP LT COMPLETE AP PELVIS EXAM: XR HIP LT COMPLETE AP PELVIS INDICATION: s/p left FRANK. COMPARISON: CR XR HIP PELVIS ADULT BL from 12/20/2021 XA XR HIP LT IN OR from 02/25/2022 TECHNIQUE: 2D digital imaging was performed. Two views. FINDINGS: The right hip prosthesis is unchanged. There has been interval placement of a left hip prosthesis wh ich shows satisfactory alignment. No abnormal surrounding bony lucencies. IMPRESSION: Unremarkable bilateral total hip prostheses. DATA REPOSITORY: RADIATION DOSE DELIVERED:
== END 2022-03-10 10:15 | disposition home or self-care (01) ==
LOC: DIORS 10:14
PROVIDERS: PCP Family Medicine; Referring Provider Family Medicine; Visit Provider Physician Assistant
DX: Z96.642 Presence of left artificial hip joint (principal); Z47.1 Aftercare following joint replacement surgery
CPT/HCPCS: 73502

== ENCOUNTER 2022-12-05 06:13 | Day surgery (SDC) | payer BC, SELFPAY ==
--- NOTE | 2022-12-04 16:27 | W.PM.DSUDISC ---
Date of service: 12/05/22 Time of Service: 08:35 Discharge Plan Disposition Patient Disposition: Home Condition: Good Discharge Details Reason For Visit: screening colonoscopy Attending Provider: Moody Keys Primary Care Provider: Bebeto Calzada Home Meds and New Rx's Prescriptions: Continued atorvastatin 40 mg tablet 40 mg PO DAILY Qty: 90 3RF lisinopril 40 mg tablet 40 mg PO DAILY Qty: 90 3RF acetaminophen 500 mg tablet 1,000 mg PO TID Qty: 90 3RF Patient Comments: pt. reports he no longer takes ibuprofen 800 mg Tablet 800 mg PO Discontinued polyethylene glycol 3350 17 gram/dose powder 238 g PO ONCE Qty: 238 0RF Rx Instructions: take per colonoscopy instructions bisacodyl [Dulcolax (bisacodyl)] 5 mg tablet,delayed release (DR/EC) 5 mg PO ONCE Qty: 4 0RF Rx Instructions: take per colonoscopy instructions Discharge Instructions Instructions: Diverticulosis (GEN), Colorectal Polyps (GEN), Diverticulosis Diet (GEN) Additional Instructions: Olaf, we were able to finish your colonoscopy today without any problems. I did find 1 polyp in the rectum, it has clinical features that seem consistent with a hyperplastic polyp, as you have experienced before. Regardless, I did remove it, and we will send it off to pathology to confirm the diagnosis. Once I have the results I will be in touch. Otherwise, you have a fair amount of diverticulosis. These are weak spots in the colon wall. They can become infected and inflamed. When that happens, patients typically experience sharp pain on the right side of their abdomen, and sometimes down across the lower portion. We will attach a little bit of information here regarding general management of diverticulosis. 1. If tolerated, consume a soft, low fiber diet for 1-2 days. 2. Do not drive, drink alcohol, operate machinery, make critical decisions, or do activities that require coordination or balance for 24 hours. 3. Because air was put into your colon during the procedure, expelling air from your rectum (passing gas or farting) is normal. 4. You may not have a bowel movement for 1-3 days because of the colonoscopy prep. This is normal. 5. Go directly to the emergency room if you notice any of the following: Develop chills (warm to touch), or if you have a thermometer and your temperature is above 101 Difficulty breathing or difficultly swallowing Persistent vomiting Severe abdominal pain, other than gas cramps Severe chest pain Black, tarry stools Any bleeding ? exceeding one tablespoon 6. Call your physician if the site where your intravenous was started becomes red, swollen, painful, and warm to touch. 7. Your physician has reviewed your pre-procedure medications. Please continue to take those medications as previously ordered. You will be given specific information/education regarding any changes to your medications before leaving. Activity:: Activity as Tolerated Diet:: As Tolerated Discharge Orders Discharge Orders: Discharge Order (Routine); Ordered 12/04/22 Ordered By: Moody Keys DS: Diagnosis Discharge Diagnosis (1) Encounter for screening colonoscopy: Status: Acute Asessment and Plan: Follow-up on polypectomy results
--- NOTE | 2022-12-04 16:29 | W.COLOREPORT ---
Date of service: 12/05/22 Time of Service: 08:40 Colonoscopy Report Date of procedure: 12/05/22 Pre-op diagnosis general: Screening colonoscopy Post-op diagnosis procedure note: other (Rectal polyp, diverticulosis) Procedure: Colonoscopy with polypectomy Surgeon: Moody Keys Anesthesia Type: General:No Airway Estimated blood loss (mL): 5 Pathology: other (Rectal polyp) Complications: None Disposition: same day Indications: Olaf is a 62-year-old male needs a screening colonoscopy Prep: Miralax/Dulcolax Procedure Start Time: 07:58 Procedure End Time: 08:24 Retraction Time: 18 Findings: Pandiverticulosis, 0.25 cm rectal polyp Procedure Description: After the induction of monitored anesthetic care, and with the patient in left lateral decubitus position, I began by performing an external anorectal exam.? Perineum and skin were normal, as was the anal verge.? There was no evidence of external hemorrhoids.? Next, I performed a digital rectal exam.? I did not appreciate any abnormal findings.? Next, I advanced a colonoscope into the rectal vault.? I performed retroflexion.? There are grade 1 internal hemorrhoids.? Using insufflation, I then advanced the colonoscope beyond the rectal folds and into the sigmoid colon before advancing towards the cecum.? The quality of the prep was excellent.? The scope was noted to be in the cecum by identification of the ileocecal valve and appendiceal orifice.? I then began withdrawing the colonoscope using repeated irrigation as necessary for full evaluation of the colonic mucosa. There is diverticulosis extending from the sigmoid colon all the way to the cecum. It is most heavily concentrated in the sigmoid. Once the scope was withdrawn to the level of the rectum, great care was taken to examine portions of the rectal folds.? There was a 0.25 cm sessile polyp within the rectum. I removed it with cold forcep polypectomy. There was minimal bleeding. Finally, the scope was withdrawn and the patient was brought to the same-day surgery recovery unit as the anesthetic wore off. ?The findings and instructions were shared with the patient prior to discharge.
[2022-12-05 06:36] VITALS: BP 130/85; PULSE 68; RESP 14; TEMP 36.7; O2SAT 99
--- NOTE | 2022-12-05 06:43 | ANES.PREOP_ITS ---
General Info Date of Service Date Performed: 12/05/22 Height: 5 ft 8 in Weight: 76.9 kg Body Mass Index (BMI): 25.7 Surgical Procedure: Operation Date: 12/05/22 07:35 Proposed Procedure Side Surgeon p Thea Keys MD Meds Allergies and Home Medications Allergies Allergy/AdvReac Type Severity Reaction Status Date / Time tamsulosin HCl [From Flomax] AdvReac Intermediate headache Verified 12/05/22 06:32 sildenafil citrate AdvReac Mild headache Verified 12/05/22 06:32 [From Viagra] Home Medication Medication Instructions Recorded acetaminophen 500 mg tablet 1,000 mg PO TID #90 tabs 02/25/22 atorvastatin 40 mg tablet 40 mg PO DAILY #90 tabs 07/03/22 lisinopril 40 mg tablet 40 mg PO DAILY #90 tabs 07/03/22 ibuprofen 800 mg tablet 800 mg PO 12/05/22 Current Visit Medications: Current Medications Generic Name Dose Route Start Last Admin Trade Name Freq PRN Reason Stop Dose Admin Hyoscyamine Sulfate 0.125 mg 12/04/22 16:30 Hyoscyamine 0.125 Mg Sl/Oral/Chew SL 01/03/23 16:29 DIRECTED PRN Ringer's Solution 1,000 mls @ 80 mls/hr 12/05/22 06:00 IV 12/05/22 23:59 INFUSION [facility] IV Miscellaneous Supplies 1 each 12/05/22 06:00 Iv Access IV 12/05/22 23:59 DIRECTED DANIELA Ondansetron HCl 4 mg 12/04/22 16:30 Ondansetron 4 Mg/2 Ml Vial IVP 01/03/23 16:29 Q4H PRN PRN Nausea / Vomiting Sodium Chloride 0 ml 12/05/22 06:00 Normal Saline Flush 10 Ml Syr IV 12/05/22 23:59 PRN PRN Sodium Chloride 0 ml 12/05/22 06:00 Normal Saline 10 Ml Vial IJ 12/05/22 23:59 DIRECTED PRN Sterile Water 0 ml 12/05/22 06:00 Water,Injection,Sterile 10 Ml Vial IJ 12/05/22 23:59 DIRECTED PRN PFSH Active Problems Active Problems: Problem Status Onset Code Encounter for screening colonoscopy Z12.11 Mitral valve regurgitation I34.0 Arthritis of carpometacarpal (CMC) joint of right thumb M18.11 Arthritis of carpometacarpal (CMC) joint of left thumb M18.12 Status post total hip replacement, right 11/01/19 Z96.641 Hyperlipidemia E78.5 Primary osteoarthritis of right hip M16.11 Chondromalacia, left knee M94.262 Essential hypertension I10 Arthritis 12/19/14 M19.90 Urgency of micturition 06/20/16 R39.15 Tendonitis of both rotator cuffs 02/23/15 M75.81, M75.82 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 Other and unspecified hyperlipidemia 10/21/00 E78.5 Frequency of micturition 05/23/16 R35.0 Erectile dysfunction 12/23/13 N52.9 Bilateral acromioclavicular joint arthritis 02/23/15 M19.011, M19.012 BPH w/o urinary obs/LUTS 10/19/03 N40.0 Benign neoplasm of colon 11/18/09 D12.6 Adjustment disorder with anxiety 04/28/16 F43.22 Medical History Medical History Family history of prostate cancer Grandfather, likely non-metastatic Surgical History Surgical History Colonoscopy w/ BX (01/05/15) H/O vasectomy History of total left hip replacement (02/25/22) Repair, Rotator Cuff (02/13/15) 02/06/2015- Dr Lay. debrid rotator cuff, subacromial debrid w/acromioplasty, biceps tenotomy, distal clavicle excision, glenohumeral/labral debridment; Both shoulders Status post tonsillectomy Tobacco Smoking/Tobacco Use Status: Never Smokeless tobacco user: chewing tobacco (prn) Alcohol Alcohol Intake: current Alcohol intake frequency: 0-2 drinks per day Alcohol type: beer Substance Use Substance use: Rarely Substance use type: marijuana Vital Signs and Lab Results Vital Signs Most Recent Vital Signs in EMR: Most Recent Vital Signs Temp Pulse Resp BP Pulse Ox 36.7 C 68 14 130/85 99 12/05/22 06:36 12/05/22 06:36 12/05/22 06:36 12/05/22 06:36 12/05/22 06:36 Lab Results Blood Type / Crossmatch: No Data to Display Complete Blood Count: No Data to Display Complete Metabolic Panel: No Data to Display Liver Function Panel: No Data to Display Coagulation Panel: No Data to Display Cardiac Panel: No Data to Display Arterial Blood Gas: No Data to Display Venous Blood Gas: No Data to Display Pancreas Panel: No Data to Display Thyroid Panel: No Data to Display Infectious Disease: No Data to Display Blood Cultures: No Data to Display Toxicology Panel: No Data to Display Imaging and Studies Imaging and Studies Study information below may be from another EMR and interpreted by another provider. Please see original notes in EMR for more complete details. Echocardiogram Summary: Patient Name: Les Lucas #: [id number]: DI Ordering Provider: Daniel Lay M.D. : [facility] Primary Care Provider: Bebeto Calzada of Exam: 02/24/22Sex: M Admission Date: 02/24/22 : 1960 Age: 62 APPROVED REPORT EXAM: Comprehensive 2D, Doppler, and color-flow Echocardiogram Patient Location: Out-Patient Casting Machine Set Up Operator: Vanessa Sotelo RDCS (AE) Indications: Mitral regurgitation, Pre op Other Information Study Quality: Good Conclusion Normal left ventricular wall thickness and chamber size. Estimated ejection fraction is 68%. Wall motion is normal Normal right ventricular size and systolic function Both atria are normal in size There is no structural or hemodynamically significant valvular disease Wall motion Left Ventricle The left ventricle is normal size. The left ventricular systolic function is normal. The left ventricular ejection fraction is within the normal range. There is normal left ventricular wall thickness. There is normal LV segmental wall motion. There is no ventricular septal defect visualized. LVEF is 68%. Right Ventricle The right ventricle is normal size. The right ventricular systolic function is normal. The RVSP is 19.1mmHg. Atria The left atrium size is normal. The right atrium size is normal. The interatrial septum is intact with no evidence for an atrial septal defect. Aortic Valve The aortic valve is normal in structure. Aortic valve is trileaflet. There is no aortic valvular stenosis. No aortic regurgitation is present. Mitral Valve The mitral valve is normal in structure. No evidence of mitral valve stenosis. Trace mitral regurgitation. Tricuspid Valve The tricuspid valve is normal in structure. There is no tricuspid valve stenosis. Trace tricuspid regurgitation. Pulmonic Valve The pulmonary valve is normal in structure. There is no pulmonic valvular stenosis. Trace pulmonic regurgitation. Great Vessels The aortic root is normal in size. The ascending aorta is normal in size. Aortic arch is normal in caliber. IVC is normal in size and collapses >50% with inspiration. Pericardium There is no pericardial effusion. 2D Dimensions IVSD d PLAX 0.92 cm M: 0.6-1.2LV Vol A2C d MOD 104.2 mL LVPW d PLAX 0.96 cm M: 0.6 - 1.2LV Vol A4C d MOD 99.2 mL LVID d PLAX 4.55 cm M: 4.2 - 5.8LA vol/ BSA A2C s A-L29.6 mL/m2 LVDs 2.70 cm M: 2.5 - 4.0LA vol/ BSA A4C s A-L19.3 mL/m2 Ao Root d 3.12 cm M: 3.1 - 3.7LA Vol/ BSA Biplane s A-L 24.1 mL/m2 RA Area A4C15.27 cm2LA Area A4C s MOD 14.81 cm2 RA Vol/ BSA A4C s A-L 20.0 mL/m2LA Area A2C s MOD 18.48 cm2 Ao Asc Diam d 3.31 cm M: 2.6 - 3.4LV EF A4C MOD 68.7 % LV EF Teichholz 70.4 %LV EF A2C MOD 68.0 % LVEF (Panda's)68.09 % M: 52 - 72LV EF Biplane MOD 68.1 % LV Xciqbt60.84 mL M: 62 - 126UD89.78 mL LV Volume Index40.54 mL/m2 M: 34 - 74SV Index36.22 mL/m2 LV Vol Biplane MOD 102.5 mL FS39.70 % M-Mode TAPSE 2.66 cm (M/F) >1.7 LV Diastology MV E' medial0.109 (>0.07 m/s)E/A Ratio 1.1 LV E/e MED5.35 (<14)MV E Vmax 0.58 (0.4-1.3 m/s) MV E' lateral0.147 (>0.1 m/s)MV A Vmax 0.55 (0.4-1.3 m/s) LV E/e LAT3.95 (<14)MV E/A Ratio 1.03 MV E/E' medial 5.38 MV E/E' lateral3.98 Aortic Valve LVOT Area3.05 cm2AoV Area Vmax2.79 cm2 LVOT Vmax 1.25 m/sAoV Area/ BSA (Vmax)1.45 cm2/m2 LVOT Mean Dion.0.75 m/sAVA Mean Dion.2.52 cm2 LVOT Peak Grad 6.3 mmHgAVA Mean Dion. Index1.31 cm2/m2 LVOT Mean Grad 2.8 mmHg LVOT VTI0.237 m LVOT Diam s 1.95 cm AoV Vmax1.37 m/s Velocity Ratio 0.91 AoV Mean Dion.0.91 m/s AoV Peak Grad7.5 mmHg LVOT SV 72.25 mL AoV Mean Grad3.8 mmHg AoV VTI0.248 m AoV Area VTI2.92 cm2 AoV Area/ BSA (VTI)1.51 cm/m2 Mitral Valve MV DT 311 (160-240 msec) MV PHT90 msec MV Area PHT 2.44 cm2 Pulmonary Valve PV Vmax 1.06 (0.5-1.5 m/s)RVOT Peak Gr.1.40 mmHg PV Peak Grad 4.5 mmHgRVOT Mean Gr.0.65 mmHg PV Mean Grad 2.2 mmHgRVOT VTI0.126 m PV VTI 0.194 mRVOT Vmax 0.59 m/s Tricuspid Valve TR Peak Grad 16.0 mmHgTR Vmax 2.00 m/s RA Pressure 3.00 mmHg RVSP (TR) 19.1 mmHg Ordered By: Daniel Lay M.D. CC: Dictated By: Jenna Herman M.D. 02/24/22 1230 <Electronically signed by Jenna Herman M.D. in OV> 02/24/22 1257 Transcribed By: Jenna Herman MD This is privileged, confidential information intended only for the provider named. Any use or distribution by any person other than this provider is strictly prohibited. If you receive this report in error, please notify us immediately at [phone] and return the original report to us at the address above. Thank-you. Anesthesia Assessment and Plan Anesthesia History Personal History: No History of Anesthesia Complications Family History: No Family History of Anesthesia Complications Exercise Tolerance Exercise Tolerance: Metabolic Equivalents>4 Pertinent Negatives Pertinent Negatives: No Symptoms of GERD Cardiac & Pulmonary Exam Cardiac Exam: Normal S1/S2 Heart Sounds Pulmonary Exam: Clear Bilateral Breath Sounds Implantable Cardiac Device Does patient have a Pacemaker or an ICD?: No Airway Exam Known Difficult Airway: No Mallampati Class: 1 Mouth Opening: Normal (> 3cm) Thyromental Distance: Greater than 3 cm Neck Range of Motion: Full ROM Neck Circumference: Normal Teeth Condition: Normal Dentition Airway Comments: #2,3,19,30 ASA Classification ASA Score: ASA 2 Emergency Case?: No NPO Status NPO Status: NPO Clears >2 hours, Solids >8 hours Anesthesia Plan Resuscitation Status: Full Code Anesthesia Technique: General Anesthesia Airway Planned: Natural Airway Monitors Used: Standard Monitors
[2022-12-05 06:45] VITALS: BMI 25.7
[2022-12-05] MEDS: Lactated Ringers 1,000 ML 80 ML IV (06:50)
--- NOTE | 2022-12-05 08:01 | BOWEL_PTH ---
PATIENT: Les Lucas JR LOC: [facility] U#:[id number] AGE/SX: 62/M ROOM: RE12/05/[address]: Moody Keys MD : 1960 BED: DIS: 12/05/2022 SPEC #: [id number] RECD: 12/05/22 12:38 STATUS: LORRIE REQ #: [id number] NOEMI: 12/05/22 08:[address]: Moody Keys DEPT: Surgical Specimen RECD BY: Trina Sutton ENTERED: 12/05/22 12:39 SP TYPE: Bowel OTHR DR: Bebeto Calzada DO Tissues: 1 - BIOPSY BOWEL Procedures: GROSS AND MICRO LEVEL 4 Comments: [id number]
[2022-12-05 08:29] VITALS: BP 115/79; PULSE 67; RESP 18; TEMP 36.2; O2SAT 97
[2022-12-05 08:49] VITALS: BP 127/76; PULSE 58; RESP 16; TEMP 36.2; O2SAT 98
--- NOTE | 2022-12-05 09:07 | W.ANESPOSTOP ---
Postoperative Evaluation Date, Time and Location Date Performed: 12/05/22 Time Performed: 08:29 Patient Location: Day Surgery Unit Vital Signs Most Recent Imported Vital Signs: Most Recent Vital Signs Temp Pulse Resp BP Pulse Ox 36.2 C L 58 L 16 127/76 98 12/05/22 08:49 12/05/22 08:49 12/05/22 08:49 12/05/22 08:49 12/05/22 08:49 Seen at 0829 and reviewed VS at that time Pain Score Most Recent Pain Score: Most Recent Pain Score Pain Level 0 12/05/22 08:49 Assessment Mental Status: Awake (Alert & Oriented to Patient Baseline) Airway and Respiratory Function: Patent airway with normal (patient baseline) respiratory exam Cardiovascular Function: Hemodynamically Stable Hydration Status: Adequately Hydrated Nausea & Vomiting: No Nausea or Vomiting Pain: Pt. Denies Any Pain Peripheral Nerve Block: Patient did not receive a nerve block
== END 2022-12-05 09:05 | disposition home or self-care (01) ==
PROVIDERS: PCP Family Medicine; Visit Provider Surgery
PROC: 0DJD8ZZ Inspection of Lower Intestinal Tract, Via Natural or Artificial Opening Endoscopic (ICD-10-PCS; CPT 45378; principal; 2022-12-05 07:30)
DX: Z12.11 Encounter for screening for malignant neoplasm of colon (principal); K57.30 Diverticulosis of large intestine without perforation or abscess without bleeding; K62.1 Rectal polyp
CPT/HCPCS: 45380; 88305

== ENCOUNTER 2023-03-27 09:25 | Outpatient (CLI) | payer BC, SELFPAY ==
--- NOTE | 2023-03-27 08:30 | DI.RAD_ITS ---
Exam(s) XR HIP PELVIS ADULT BL EXAM: XR HIP PELVIS ADULT BL CLINICAL HISTORY: THR F/U. TECHNIQUE: 2D digital imaging was performed. Three images were obtained. AP and lateral views were obtained. COMPARISON: CR XR HIP PELVIS ADULT BL from 12/20/2021 CR XR HIP LT COMPLETE AP PELVIS from 03/10/2022 FINDINGS: BONES: There are stable post operative changes of a bilateral total hip replacements present. No fra cture or dislocation. JOINTS: The orthopedic hardware is in good position. No evidence of hardware loosening. SOFT TISSUE: Normal. IMPRESSION: Stable postoperative changes. DATA REPOSITORY: RADIATION DOSE DELIVERED:
== END 2023-03-27 09:26 | disposition home or self-care (01) ==
LOC: DIORS 09:25
PROVIDERS: PCP Family Medicine; Visit Provider Student in an Organized Health Care Education/Training Program
DX: Z96.642 Presence of left artificial hip joint (principal); Z96.641 Presence of right artificial hip joint; Z47.1 Aftercare following joint replacement surgery
CPT/HCPCS: 73521

== ENCOUNTER 2024-01-14 14:57 | Outpatient (CLI) | payer BC, SELFPAY ==
--- NOTE | 2024-01-14 14:39 | DI.RAD_ITS ---
Exam(s) XR WRIST LT COMP NAVICULAR EXAM: XR WRIST LT COMP NAVICULAR CLINICAL HISTORY: LEFT WRIST PAIN. TECHNIQUE: 2D digital imaging was performed of the left wrist. Or images were obtained. Scaphoid, PA, oblique and lateral views were obtained. COMPARISON: CR XR HAND LT COMPLETE from 03/30/2020 FINDINGS: BONES: No acute fracture is present. No bony destructive lesion is seen. JOINTS: The carpal bones are normally aligned. Marked degenerative changes are seen at the 1st CMC toney int characterized by joint space narrowing and osteophytes. Subchondral sclerosis is seen. They do not show significant change compared to the prior examination. The joint spaces are otherwise well m aintained. SOFT TISSUE: Normal. IMPRESSION: Stable marked degenerative changes seen at the 1st CMC joint. DATA REPOSITORY: RADIATION DOSE DELIVERED:
== END 2024-01-14 14:58 | disposition home or self-care (01) ==
LOC: DIORS 14:57
PROVIDERS: PCP Family Medicine; Visit Provider Student in an Organized Health Care Education/Training Program
DX: M18.12 Unilateral primary osteoarthritis of first carpometacarpal joint, left hand (principal)
CPT/HCPCS: 73110

== ENCOUNTER → 2024-02-25 08:21 | Outpatient (BNVA) | payer MEDICARE, SELFPAY | PROVIDERS: PCP Family Medicine; Referring Provider Family Medicine; Visit Provider Student in an Organized Health Care Education/Training Program | DX: M18.12 Unilateral primary osteoarthritis of first carpometacarpal joint, left hand (principal) | CPT/HCPCS: 20605; J1010 ==

== ENCOUNTER 2024-03-09 02:58 | Outpatient (CLI) | payer MEDICARE, SELFPAY ==
--- NOTE | 2024-03-09 07:00 | DI.CT_ITS ---
Exam(s) CT UPPER EXTREMITY LT WO EXAM: CT UPPER EXTREMITY LT WO CLINICAL HISTORY: REMOTE HX SCAPHOID FX,lt wrist pain,m25.532. TECHNIQUE: Imaging Protocol: Axial computed tomography images with coronal and sagittal reformatted images were created and reviewed. COMPARISON: CR XR WRIST LT COMP NAVICULAR from 01/14/2024 FINDINGS: Bones: The osseous structures and articular surfaces are intact. The scaphoid is intact. No eviden ce of a nonunited fracture. Bony alignment is satisfactory. No cellulitic or osteomyelitic changes are identified. There are marked degenerative changes seen at the 1st CMC joint characterized by phil nt space narrowing, subchondral sclerosis and osteophytes. There is also narrowing of the radiocarpa l joint particularly posteriorly. No lytic or sclerotic lesions are identified. Soft Tissues: There does appear to be fluid seen within the carpal tunnel. There is also question of an effusion in the radiocarpal joint. IMPRESSION: 1. No evidence of a acute or nonunited scaphoid fracture. 2. Fluid seen within the carpal tunnel and the radiocarpal joint effusion. MRI may be considered for further characterization. 3. 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 RADIATION DOSE DELIVERED: 51.42mGy.cm Total DLP 51.42mGy.cm Total DLP DATA REPOSITORY: All CT scans at this facility are submitted to the National Radiology Data Registry (NRDR) Dose Index Registry (DIR) with the [employer] ([employer]). RADIATION OPTIMIZATION: All CT scans at this facility use at least one of these dose optimization te chniques: automated exposure control; mA and/or kV adjustment per patient size (includes targeted exa ms where dose is matched to clinical indication); or iterative reconstruction.
== END 2024-03-09 03:18 ==
LOC: DI 02:59
PROVIDERS: PCP Family Medicine; Visit Provider Student in an Organized Health Care Education/Training Program
DX: M25.532 Pain in left wrist (principal)
CPT/HCPCS: 73200

== ENCOUNTER → 2024-06-17 13:25 | Outpatient (BNVA) | payer MEDICARE, SELFPAY | PROVIDERS: Referring Provider Family Medicine; Visit Provider Physical Therapy Assistant | DX: K62.5 Hemorrhage of anus and rectum (principal) | CPT/HCPCS: 99213 ==

== ENCOUNTER 2024-08-26 08:51 | Outpatient (CLI) | payer MEDICARE, SELFPAY ==
[2024-08-30 15:12] LABS: PSA, Ultrasensitive 2.1 ng/mL (<= 4.5)
== END 2024-08-26 08:52 | disposition home or self-care (01) ==
LOC: LBO 08:51
PROVIDERS: PCP Family Medicine; Visit Provider Nurse Practitioner Family
DX: N40.1 Benign prostatic hyperplasia with lower urinary tract symptoms (principal); N13.8 Other obstructive and reflux uropathy
CPT/HCPCS: 36415; 84153

== ENCOUNTER 2025-03-17 07:36 | Outpatient (CLI) | payer MEDICARE, SELFPAY ==
[2025-03-17 10:04] LABS: ALT 27 U/L (10-49); AST 34 U/L (<34); Albumin 4.4 g/dL (3.2-5.0); Alkaline Phosphatase 53 U/L (46-116); Anion Gap 9 mmol/L (3-11); BUN 24 mg/dL (9-23); Bilirubin, Total 0.8 mg/dL (0.2-1.2); CO2 28.0 mmol/L (20.0-31.0); Calcium 9.4 mg/dL (8.3-10.6); Chloride 106 mmol/L (98-107); Cholesterol 159 mg/dL (<200); Glucose 109 mg/dL (74-106); HDL Cholesterol 67 mg/dL (>or=40); Potassium 4.2 mmol/L (3.5-5.1); Sodium 143 mmol/L (136-145); Total Protein 7.1 g/dL (5.7-8.2)
== END 2025-03-17 07:37 | disposition home or self-care (01) ==
LOC: LBO 07:36
PROVIDERS: PCP Family Medicine; Visit Provider Family Medicine
DX: E78.5 Hyperlipidemia, unspecified (principal); I10 Essential (primary) hypertension
CPT/HCPCS: 36415; 80053; 80061